=== PATIENT | male | born 1925 | race Caucasian/White ===

== ENCOUNTER 2017-07-23 05:37 | Emergency (ER) | payer MEDICARE, BC ==
--- OUTSIDE RECORDS SUMMARY | 2017-07-23 07:13 | XMS REPORT ---
:1925 External Reference #:[id number] Author Organization [facility] Address [address] [place] [address] Phone [phone] Care Team Providers Name Role Phone HCP/LW on file Primary Care Physician Unavailable Payers Type Date Identification Numbers Payment Provider Subscriber Medicare Primary Policy Number: [id number] [facility] Lloyd Cervantes PayID: [id number] [address] [place] [address] Medigap Part B Policy Number: [id number] [place] Lloyd Cervantes Group Number: [id number] [address] PayID: [id number] [place] [address] Problems Date Description Provider Status Onset: 09/03/2007 Coronary arteriosclerosis Elizabeth Page M.D. Active Onset: 11/05/2005 Gastroesophageal reflux disease Elizabeth Page M.D. Active Onset: 01/10/2006 Benign essential hypertension Elizabeth Page M.D. Active Onset: 01/10/2006 Palpitations Elizabeth Page M.D. Active Onset: 04/11/2006 Overweight Elizabeth Page M.D. 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 Cigarette Use Tobacco Of Any Kind Denies Use ETOH Use Occasionally consumes alcohol Recreational Drug Use Denies Drug Use Daily Caffeine Consumes on average 3 cups of coffee per day Exercise Type/Frequency 04/29/2015 Exercises doing 3/7 d stationary bike 20 min and wgt lifing all told for 1 hour advised to consider walking more to make 5 x/wk and 150 min per week min Sun Exposure minimum amount of sun exposure Sun Exposure Does not use sunscreen Seat Belt/Car Seat always uses seat belt Personal Habits cu wellness tiw wgt and exercise Currently Active 01/29/2008 Patient is currently not sexually active Age 1st [place] 19 Years Old STD's No STD History Sexual Hx Patient states heterosexual. Allergies, Adverse Reactions, Alerts Date Description Reaction Status Severity Comments 09/27/2003 NKDA active Medications Medication Date Status Form Strength Qnty SIG Indications Ordering Provider Elimargarito Active Tablets 5mg 60tabs 1 tablet I48.0 Rodney, 017 by mouth MD Simona every 12 hours Terazosin HCL Active Capsules 5mg 90caps take 1 I10 Sopchak, 014 capsule by Magnus, D.O. mouth every evening N40.1 Diltiazem 11/25/2013 Active Caps ER 24HR 180mg 90caps 1 every day Rodney for heart MD Simona blood pressure Ranitidine HCL 05/01/2013 Active Tablets 300mg 180tabs 1 tablet K2 Sopchak, twice a day 1. diamond Agudelo heart 9 D.O. burn on empty stomach - Simvastatin 01/15/2012 Active Tablets 20mg 90tabs 1 by mouth I2 Sopchak , every day 5. Magnus, 10 D.O. Centrum Silver 09/10/2008 Active Tablets Elizabeth Page M.D. Asa (Baby) 03/02/2004 Active 81mg 1 PO qd Elizabeth Page M.D. Medrol 04/05/2016 - Hx TBPK 4mg 1units use as M7 Hektor, 06/13/2016 directed on 9. JENNA Whiteside package 67 2 Azopt 05/15/2015 - Hx Suspension 1% prn Unknown 05/14/2016 Ultravate 05/27/2014 - Hx Cream 0.05% 50gm apply three 69 Elizabeth A. 06/29/2014 times a day 2. Ksenia to foot 89 M.D. only prn itch Durezol 05/26/2014 - Hx Emulsion 0.05% 1 drop q Unknown 06/11/2014 other day L eye Glucosamine 05/26/2014 - Hx Capsules 1500Com 2 a day Unknown 1500 Complex 10/14/2014 Prilosec 2012 - Hx Capsules DR 20mg otc 1 qd uses 53 Elizabeth A. 11/25/2013 them on 0. Ksenia, weekends 83 M.D. and rantidine on weekdays Omeprazole 09/29/2012 - Hx Capsules DR 20mg OTC 1 po every Unknown 2012 other day Amlodipine 05/15/2012 - Hx Tablets 5mg 90tabs take 1 40 Elizabeth A. Besylate 11/25/2013 tablet by 1Tonya Page mouth once 1 M.D. daily for high blood pressure Terazosin HCL 01/29/2012 - Hx Capsules 2mg 90caps 1 qd for 40 Elizabeth A. 11/26/2013 blood 1. Ksenia pressure 1 M.D. and prostate 600.01 Azopt 01/15/2012 - Hx Suspension 1% 365.10 [place], 06/11/2014 MD Noel Amlodipine 09/24/2011 - Hx Tablets 10mg 1/2 po qd 401.1 [place], Besylate 05/15/2012 MD Simona Amlodipine 08/09/2011 - Hx Tablets 10mg 1/4 tablet 401.1 Ksenia Besylate 09/24/2011 (2.5mg) qd Elizabeth Glez M.D. Terazosin HCL 05/15/2011 - Hx Capsules 1mg 90cap 2 qd at 401.1 Elizabeth ATonya 01/29/2012 s bedtime for lynn Page M.D. pressure 600.01 Tums 12/30/2009 - Hx Chewtabs 500mg V70.0 Elizabeth Glez 2012 Rojelio Page Vitamin D 12/29/2009 - Hx Capsules 1000Unit 1 po qd Unknown 07/01/2013 Norvasc 09/27/2009 - Hx Tablets 2.5mg 1 po qd for 785.1 Elizabeth Glez 05/31/2010 high blood Rojelio Page pressure 796.2 401.1 Atenolol 06/18/2009 - Hx Tablets 50mg take 02/14tablet by 785.1 Elizabeth Glez 09/27/2009 mouth once a day Rojelio Page 796.2 401.1 Atenolol 12/07/2008 - Hx Tablets 50mg 90tabs 1/2 qd for 785.1 Elizabeth Glez 06/18/2009 palpitations Rojelio Page 796.2 401.1 Atenolol 09/29/2008 - 12/07/2008 Hx Tablets 25mg 1 po qd 785.1 Elizabeth Page M.D. 796.2 401.1 Fish Oil 09/10/2008 - Hx Capsules 1000mg otc 1 a day Elizabeth Glez 10/14/2014 Rojelio Page dispense the prescription variety Glucosamine 09/10/2008 - Hx Capsules 500mg 715.0 Elizabeth Glez 05/14/2011 9 Rojelio Page Magnesium 01/29/2008 - Hx Tablets started self 414.0 Elizabeth Glez 09/10/2008 [address] 1 Rojelio Page 333.94 Simvastatin 09/29/2007 - Hx Tablets 40mg 90tabs 1/2 qpm For 414.01 Elizabeth Glez 01/15/2012 Cholesterol Rojelio Page Lisinopril 09/29/2007 - Hx Tablets 2.5mg 30tabs 1 PO Once 414.01 Unknown 03/12/2008 Daily Ketoconazole 09/15/2007 - Hx Cream 2% 30gm Apply To 110.3 Elizabeth Glez 09/25/2007 Affected Area Ksenia, bid For Ten M.D. Days Hydrocortisone 09/15/2007 - Hx Cream 2.5% 30gm apply and rub 110.3 Elizabeth ATonya 09/25/2007 in well once a Ksenia, day or more M.D. often if needed Atenolol 07/31/2007 - Hx Tablets 50mg 1qd PO qam 785.1 Elizabeth Glez 09/29/2008 Rojelio Page 796.2 401.1 Nitroglycerin 07/31/2007 - Hx Tablets Sub 0.4mg 100tabs 1 PO prn 786.09 Elizabeth Glez 08/09/2011 For Chest Ksenia, Pain, May M.D. Repeat After 5Min To A Max Of 3 Doses. Atenolol 07/15/2007 - Hx Tablets 25mg 1/4 in am 785.1 Elizabeth Glez 07/31/2007 [facility] for [facility].D. the next week then try 1/4 am and pm then call wy 796.2 401.1 Tobrex 06/18/2006 - Hx Solution 0.3% 5cc 2 Drops To Both 373.00 Terri Betts 06/23/2006 Eyes qid For 5 MD Days Atenolol 12/17/2005 - Hx Tablets 50mg 90tabs 1/2 bid for blood 785.1 Elizabeth Glez 07/15/2007 pressure and Ksenia, palpitations M.DTonya 796.2 401.1 Amoxicillin 11/26/2005 - Hx Capsules 500mg 30caps 1 tid For 461.0 Elizabeth Glez 12/06/2005 Ten Days Rojelio Page Ultravate 10/04/2005 - Hx Cream 0.05% 50gm Apply To 705.81 Elizabeth Glez 10/11/2005 Affected Ivette Page Three Jose ManuelDTonya Time A Day For 7 Days Viagra 03/02/2004 - Hx Tablets 50mg 20tabs 1 po qd prn 302.72 Elizabeth Glez 08/01/2007 as directed Rojelio Page Doxycycline 09/24/2003 - Hx Capsules 100mg 14caps 1 PO bid 082.0 ksenia Hyclate 05/08/2004 Ranitidine HCL 09/09/2003 - Hx Tablets 300mg 90tabs Take 1/2 To 530.81 Elizabeth Glez 2012 1 Tablet Ksenia Once A Day M.DTonya For Heart Burn Amlodipine - Hx Tablets 10mg 1 po qd 401.1 Unknown Besylate 05/15/2011 Amlodipine - Hx Tablets 5mg Unknown Besylate 05/15/2015 Medications Administered in Office Medication Date Status Form Strength Qnty SIG Indications Ordering Provider [id number] Swine Flu Administered Bubba Page M.D. Immunizations CPT Code Status Date Vaccine Lot # [id number] Given 12/19/2016 Influenza Virus Vaccine, Quadrivalent, Split, [id number] Preservative Free 31636 Given 06/14/2016 Td Immunization [id number] 31844 Given 12/12/2015 Influenza Vaccine Split Virus Preservative Free Im [id number] Use 40846 Given 11/16/2014 Influenza Vaccine Split Virus Preservative Free Im [id number] Use 85846 Given 05/27/2014 Prevnar 13 [id number] 89612 Given 12/29/2013 Influenza Vaccine Split Virus Preservative Free Im [id number] Use 92053 Given 2012 Flu, Split Virus 3Yrs [id number] 90236 Given 01/15/2012 Flu Vaccine Split Virus 3Yrs And Older [id number] 92145 Given 01/17/2011 Zostavax [id number] 37332 Given 10/27/2010 Flu, Split Virus 3Yrs [id number] 17901 Given 12/30/2009 Flu, Split Virus 3Yrs [id number] 85729 Given 11/05/2008 Flu, Split Virus 3Yrs [id number] 71134 Given 12/08/2007 Flu, Split Virus 3Yrs 97580 Given 11/16/2006 Flu, Split Virus 3Yrs [id number] 42957 Given 12/17/2005 Flu, Split Virus 3Yrs [id number] 71060 Given 11/05/2005 Td Immunization [id number] 51768 Given 12/12/2004 Flu, Split Virus 3Yrs 21969 Given 12/21/2003 Flu, Split Virus 3Yrs 99228 Given 12/17/2002 Influenza Immunization 82753 Given 11/21/1995 Pneumococcal Immunization Vital Signs Date Vital Result Comment 07/15/2017 BP Systolic 112 mmHg BP Diastolic 58 mmHg Weight 199.00 lb 06/18/2017 BP Systolic 124 mmHg BP Diastolic 60 mmHg Height 68.5 inches 5'8.50" Weight 197.00 lb BMI (Body Mass Index) 29.5 kg/m2 12/19/2016 BP Systolic 118 mmHg BP Diastolic 64 mmHg Weight 205.00 lb 06/14/2016 BP Systolic 120 mmHg BP Diastolic 60 mmHg Heart Rate 80 /min Respiratory Rate 17 /min Height 68.50 inches 5'8.50" Weight 201.00 lb BMI (Body Mass Index) 30.1 kg/m2 04/05/2016 BP Systolic 158 mmHg BP Diastolic 80 mmHg 12/12/2015 BP Systolic 118 mmHg BP Diastolic 60 mmHg BP Systolic Standing Resting Right Arm 123 mmHg K BP Diastolic Standing Resting Right Arm 70 mmHg K Heart Rate 70 /min Sitting Respiratory Rate 16 /min Height 68.50 inches 5'8.50" Weight 199.00 lb BMI (Body Mass Index) 29.8 kg/m2 05/16/2015 BP Systolic 110 mmHg BP Diastolic 60 mmHg Heart Rate 64 /min Respiratory Rate 16 /min Height 68.5 inches 5'8.50" Weight 198.00 lb BMI (Body Mass Index) 29.7 kg/m2 10/28/2014 BP Systolic 128 mmHg BP Diastolic 70 mmHg Heart Rate 56 /min Respiratory Rate 16 /min Weight 195.00 lb 06/30/2014 BP Systolic 130 mmHg BP Diastolic 70 mmHg Weight 199.00 lb 05/27/2014 BP Systolic 112 mmHg BP Diastolic 72 mmHg Height 68.5 inches 5'8.50" Weight 197.00 lb BMI (Body Mass Index) 29.5 kg/m2 11/26/2013 BP Systolic 108 mmHg BP Diastolic 58 mmHg Height 69 inches 5'9" Weight 199.00 lb BMI (Body Mass Index) 29.4 kg/m2 07/02/2013 BP Systolic 150 mmHg BP Diastolic 66 mmHg Height 69 inches 5'9" Weight 199.00 lb BMI (Body Mass Index) 29.4 kg/m2 2012 BP Systolic 140 mmHg BP Diastolic 68 mmHg BP Systolic Recheck 130 mmHg BP Diastolic Recheck 60 mmHg Heart Rate 65 /min rrr Height 69.25 inches 5'9.25" Weight 199.00 lb BMI (Body Mass Index) 29.2 kg/m2 08/21/2012 BP Systolic 130 mmHg BP Diastolic 70 mmHg Height 68.75 inches 5'8.75" Weight 200.00 lb BMI (Body Mass Index) 29.7 kg/m2 05/15/2012 BP Systolic 130 mmHg BP Diastolic 72 mmHg BP Systolic Recheck 128 mmHg BP Diastolic Recheck 62 mmHg Heart Rate 62 /min rrr Respiratory Rate 16 /min Height 68.50 inches 5'8.50" Weight 204.00 lb BMI (Body Mass Index) 30.6 kg/m2 01/15/2012 BP Systolic 130 mmHg BP Diastolic 64 mmHg Heart Rate 60 /min Respiratory Rate 16 /min Height 68.75 inches 5'8.75" Weight 201.00 lb BMI (Body Mass Index) 29.9 kg/m2 08/09/2011 BP Systolic 138 mmHg right arm BP Diastolic 78 mmHg right arm BP Systolic Recheck 143 mmHg R arm, pt's machine BP Diastolic Recheck 82 mmHg R arm, pt's machine Heart Rate 62 /min Respiratory Rate 16 /min Height 69 inches 5'9" Weight 192.00 lb BMI (Body Mass Index) 28.4 kg/m2 05/15/2011 BP Systolic 120 mmHg BP Diastolic 68 mmHg Heart Rate 70 /min Respiratory Rate 16 /min Weight 192.00 lb Last Menstrual Period 0 01/11/2011 BP Systolic 130 mmHg BP Diastolic 70 mmHg Height 69 inches 5'9" Weight 196.00 lb BMI (Body Mass Index) 28.9 kg/m2 10/05/2010 BP Systolic 124 mmHg BP Diastolic 70 mmHg Weight 199.00 lb 06/01/2010 BP Systolic 134 mmHg BP Diastolic 70 mmHg Height 69 inches 5'9" Weight 198.00 lb BMI (Body Mass Index) 29.2 kg/m2 12/30/2009 BP Systolic 120 mmHg BP Diastolic 62 mmHg Heart Rate 54 /min Respiratory Rate 16 /min Weight 203.00 lb 08/18/2009 BP Systolic 138 mmHg BP Diastolic 72 mmHg BP Systolic Recheck 133 mmHg BP Diastolic Recheck 65 mmHg Heart Rate 70 /min rrr Height 70 inches 5'10" Weight 204.00 lb w/shoes BMI (Body Mass Index) 29.3 kg/m2 05/26/2009 BP Systolic 124 mmHg BP Diastolic 76 mmHg Heart Rate 70 /min Respiratory Rate 16 /min Weight 205.00 lb Last Menstrual Period 0 02/02/2009 BP Systolic 140 mmHg BP Diastolic 72 mmHg Height 69 inches 5'9" Weight 207.00 lb BMI (Body Mass Index) 30.6 kg/m2 12/07/2008 BP Systolic 134 mmHg BP Diastolic 72 mmHg Weight 203.00 lb 12/07/2008 BP Systolic 134 mmHg BP Diastolic 72 mmHg Weight 203.00 lb 09/10/2008 BP Systolic 110 mmHg BP Diastolic 70 mmHg BP Systolic Standing Resting Right Arm 116 mmHg BP Diastolic Standing Resting Right Arm 70 mmHg Heart Rate 54 /min Respiratory Rate 16 /min Weight 198.00 lb Last Menstrual Period 0 06/17/2008 BP Systolic 134 mmHg BP Diastolic 80 mmHg Height 69.25 inches 5'9.25" Weight 196.00 lb w/out shoes BMI (Body Mass Index) 28.7 kg/m2 01/29/2008 BP Systolic 112 mmHg BP Diastolic 70 mmHg Heart Rate 70 /min rrr Respiratory Rate 16 /min Height 69.5 inches 5'9.50" Weight 194.00 lb BMI (Body Mass Index) 28.2 kg/m2 09/15/2007 BP Systolic 138 mmHg BP Diastolic 68 mmHg Height 69.5 inches 5'9.50" 07/15/2007 BP Systolic 134 mmHg BP Diastolic 90 mmHg BP Systolic Recheck 130 mmHg BP Diastolic Recheck 72 mmHg Heart Rate 54 /min Respiratory Rate 16 /min Height 69.5 inches 5'9.50" Weight 210.00 lb BMI (Body Mass Index) 30.6 kg/m2 Last Menstrual Period 0 04/17/2007 BP Systolic 146 mmHg BP Diastolic 84 mmHg BP Systolic Recheck 138 mmHg BP Diastolic Recheck 78 mmHg Heart Rate 55 /min rrr Respiratory Rate 16 /min Height 69.5 inches 5'9.50" Weight 198.00 lb BMI (Body Mass Index) 28.8 kg/m2 01/23/2007 BP Systolic 142 mmHg BP Diastolic 76 mmHg Height 69.5 inches 5'9.50" Weight 206.00 lb BMI (Body Mass Index) 30.0 kg/m2 10/24/2006 BP Systolic 116 mmHg BP Diastolic 72 mmHg Height 69.5 inches 5'9.50" Weight 202.00 lb BMI (Body Mass Index) 29.4 kg/m2 Last Menstrual Period 0 07/18/2006 BP Systolic 130 mmHg BP Diastolic 68 mmHg BP Systolic Standing Resting Right Arm 140 mmHg BP Diastolic Standing Resting Right Arm 70 mmHg Heart Rate 60 /min Respiratory Rate 16 /min Height 69.5 inches 5'9.50" Weight 204.00 lb BMI (Body Mass Index) 29.7 kg/m2 Last Menstrual Period 0 06/18/2006 BP Systolic 130 mmHg BP Diastolic 78 mmHg Body Temperature 98.0 F Height 69.5 inches 5'9.50" Weight 202.00 lb BMI (Body Mass Index) 29.4 kg/m2 Last Menstrual Period 0 04/11/2006 BP Systolic 134 mmHg BP Diastolic 76 mmHg BP Systolic Standing Resting Right Arm 136 mmHg BP Diastolic Standing Resting Right Arm 70 mmHg Heart Rate 60 /min Respiratory Rate 16 /min Height 69.5 inches 5'9.50" Weight 205.00 lb BMI (Body Mass Index) 29.8 kg/m2 01/10/2006 BP Systolic 140 mmHg home bp 139/72 and 109/67 BP Diastolic 80 mmHg home bp 139/72 and 109/67 BP Systolic Recheck 134 mmHg BP Diastolic Recheck 60 mmHg BP Systolic Standing Resting Right Arm 140 mmHg BP Diastolic Standing Resting Right Arm 70 mmHg Heart Rate 59 /min Respiratory Rate 16 /min Height 69.5 inches 5'9.50" Weight 200.00 lb BMI (Body Mass Index) 29.1 kg/m2 12/17/2005 BP Systolic 150 mmHg BP Diastolic 90 mmHg BP Systolic Recheck 140 mmHg BP Diastolic Recheck 80 mmHg Heart Rate 70 /min Respiratory Rate 16 /min Height 69.5 inches 5'9.50" Weight 198.00 lb BMI (Body Mass Index) 28.8 kg/m2 11/26/2005 BP Systolic 158 mmHg BP Diastolic 86 mmHg Body Temperature 97.6 F Height 69.5 inches 5'9.50" Weight 198.50 lb BMI (Body Mass Index) 28.9 kg/m2 11/05/2005 BP Systolic 160 mmHg BP Diastolic 90 mmHg Heart Rate 66 /min Reg Respiratory Rate 16 /min Height 69.5 inches 5'9.50" Weight 200.00 lb BMI (Body Mass Index) 29.1 kg/m2 10/04/2005 BP Systolic 160 mmHg BP Diastolic 84 mmHg Height 69.3 inches 5'9.30" Weight 204.00 lb BMI (Body Mass Index) 29.9 kg/m2 05/08/2004 BP Systolic 140 mmHg home bp 135/70s BP Diastolic 100 mmHg home bp 135/70s BP Systolic Recheck 160 mmHg BP Diastolic Recheck 98 mmHg Heart Rate 80 /min rrr Respiratory Rate 16 /min Height 69.3 inches 5'9.30" Weight 209.00 lb BMI (Body Mass Index) 30.6 kg/m2 03/02/2004 Body Temperature 97.5 F Height 69.3 inches 5'9.30" Weight 204.00 lb BMI (Body Mass Index) 29.9 kg/m2 09/27/2003 BP Systolic 136 mmHg BP Diastolic 62 mmHg Body Temperature 98.2 F Weight 205.00 lb 09/24/2003 Body Temperature 102.3 F 09/24/2003 BP Systolic 136 mmHg BP Diastolic 90 mmHg 09/24/2003 Body Temperature 102.3 F Results Test Date Test Result H/L Range Note Comp Metabolic Panel 11/08/2016 Sodium 140 mmol/L 133-145 Potassium 4.0 mmol/L 3.5-5.0 Chloride 106 mmol/L 101-111 Co2 Carbon Dioxide 26 mmol/L 22-32 Anion Gap 8 mmol/L 2-11 Glucose 100 mg/dL 70-100 Blood Urea Nitrogen 26 mg/dL High 6-24 Creatinine 1.34 mg/dL High 0.67-1.17 BUN/Creatinine Ratio 19.4 8-20 Calcium 9.2 mg/dL 8.6-10.3 Total Protein 6.8 g/dL 6.4-8.9 Albumin 4.2 g/dL 3.2-5.2 Globulin 2.6 g/dL 2-4 Albumin/Globulin Ratio 1.6 1-3 Total Bilirubin 1.10 mg/dL High 0.2-1.0 Alkaline Phosphatase 60 U/L 34-104 Alt 20 U/L 7-52 Ast 23 U/L 13-39 Egfr Non- 50.3 >60 Egfr 64.7 >60 1 Lipid Profile (Trig/Chol/HDL) 11/08/2016 Triglycerides 84 mg/dL 2 Cholesterol 97 mg/dL 3 HDL Cholesterol 41.3 mg/dL 4 LDL Cholesterol 39 mg/dL 5 Laboratory test finding 11/08/2016 Creatine Kinase(CK) 102 U/L 10-223 Urine Micro Inhouse 12/12/2015 Ua WBC 1-3 6 Ua RBC - 6 Ua Casts - 6 Ua Epi packed 6 Ua Other - 6 Ua Glucose - 6 Ua Bilirubin - 6 Ua Ketones - 6 Ua Specific Aiken 1.025 6 Ua Blood - 6 Ua PH 5.0 6 Ua Protein - 6 Ua Urobilinogen - 6 Ua Nitrite - 6 Ua Leukocytes - 6 Basic Metabolic Panel 12/02/2015 Sodium 140 mmol/L 133-145 Potassium 4.6 mmol/L 3.5-5.0 Chloride 107 mmol/L 101-111 Co2 Carbon Dioxide 25 mmol/L 22-32 Anion Gap 8 mmol/L 2-11 Glucose 101 mg/dL High 70-100 Blood Urea Nitrogen 24 mg/dL 6-24 Creatinine 1.40 mg/dL High 0.67-1.17 BUN/Creatinine Ratio 17.1 8-20 Calcium 9.5 mg/dL 8.6-10.3 Egfr Non- 47.8 >60 Egfr 61.5 >60 7 Laboratory test finding 12/02/2015 Ast (Sgot) 24 U/L 13-39 Lipid Profile (Trig/Chol/HDL) 12/02/2015 Triglycerides 59 mg/dL 8 Cholesterol 93 mg/dL 9 HDL Cholesterol 43.2 mg/dL 10 LDL Cholesterol 38 mg/dL 11 Urine Micro Inhouse 05/16/2015 Ua WBC 0-2 12 Ua RBC - 12 Ua Casts 2-3 12 Ua Epi 2-3 12 Ua Other - 12 Ua Glucose - 12 Ua Bilirubin mod 12 Ua Ketones - 12 Ua Specific Aiken 1.025 12 Ua Blood - 12 Ua PH 6.0 12 Ua Protein 1+ 12 Ua Urobilinogen - 12 Ua Nitrite - 12 Ua Leukocytes - 12 Urine Micro Inhouse 10/28/2014 Ua WBC - Ua RBC 2-3 Ua Casts - Ua Epi - Ua Other - Ua Glucose - Ua Bilirubin - Ua Ketones - Ua Specific [place]iken 1.025 Ua Blood - Ua PH 5.0 Ua Protein trace Ua Urobilinogen - Ua Nitrite - Ua Leukocytes - Comp Metabolic Panel 10/28/2014 Sodium 138 mmol/L 133-145 Potassium 4.0 mmol/L 3.5-5.0 Chloride 107 mmol/L 101-111 Co2 Carbon Dioxide 23 mmol/L 22-32 Anion Gap 8 mmol/L 2-11 Glucose 89 mg/dL 70-100 Blood Urea Nitrogen 22 mg/dL 6-24 Creatinine 1.21 mg/dL High 0.67-1.17 BUN/Creatinine Ratio 18.2 8-20 Calcium 9.2 mg/dL 8.6-10.3 Total Protein 6.9 g/dL 6.4-8.9 Albumin 4.4 g/dL 3.2-5.2 Globulin 2.5 g/dL 2-4 Albumin/Globulin Ratio 1.8 1-3 Total Bilirubin 0.80 mg/dL 0.2-1.0 Alkaline Phosphatase 54 U/L 34-104 Alt 18 U/L 7-52 Ast 21 U/L 13-39 Egfr Non- 56.9 >60 Egfr 73.1 >60 13 Lipid Profile (Trig/Chol/HDL) 10/28/2014 Triglycerides 59 mg/dL 14 Cholesterol 98 mg/dL 15 HDL Cholesterol 47.9 mg/dL 16 LDL Cholesterol 38 mg/dL 17 Urine Micro Inhouse 11/26/2013 Ua WBC - Ua RBC - Ua Casts - Ua Epi - Ua Other - Ua Glucose - Ua Bilirubin sm Ua Ketones - Ua Specific [place]iken 1.020 Ua Blood - Ua PH 5.0 Ua Protein tr Ua Urobilinogen - Ua Nitrite - Ua Leukocytes - Lipid Profile (Trig/Chol/HDL) 07/02/2013 Triglycerides 73 mg/dL 18 Cholesterol 108 mg/dL 19 HDL Cholesterol 45.2 mg/dL 20 LDL Cholesterol 48 mg/dL 21 Laboratory test finding 07/02/2013 TSH (Thyroid Stimulating 0.96 IU/mL 0.34-5.60 22 Horm) Basic Metabolic Panel 07/02/2013 Sodium 140 mmol/L 133-145 Potassium 4.3 mmol/L 3.7-5.6 Chloride 108 mmol/L 101-111 Co2 Carbon Dioxide 24 mmol/L 22-32 Anion Gap 8 mmol/L 2-11 Glucose 100 mg/dL 70-100 Blood Urea Nitrogen 20 mg/dL 6-24 Creatinine 1.23 mg/dL High 0.67-1.17 BUN/Creatinine Ratio 16.3 8-20 Calcium 9.5 mg/dL 8.6-10.3 Egfr Non- 55.9 >60 Egfr 71.9 >60 23 Urine Micro Inhouse 07/02/2013 Ua WBC 2-5 Ua RBC - Ua Casts - Ua Epi many Ua Other sediment Ua Glucose - Ua Bilirubin - Ua Ketones - Ua Specific Aiken 1.025 Ua Blood - Ua PH 5.0 Ua Protein tr Ua Urobilinogen - Ua Nitrite - Ua Leukocytes - Urine Micro Inhouse 08/21/2012 Ua WBC - Ua RBC - Ua Casts - Ua Epi - Ua Other - Ua Glucose - Ua Bilirubin - Ua Ketones - Ua Specific Aiken 1.025 Ua Blood - Ua PH 5.0 Ua Protein - Ua Urobilinogen - Ua Nitrite - Ua Leukocytes - Basic Metabolic Panel 05/20/2012 Sodium 142 mmol/L 133-145 Potassium 4.1 mmol/L 3.5-5.0 Chloride 110 mmol/L 101-111 Co2 Carbon Dioxide 25.0 mmol/L 22-32 Anion Gap 7.0 mmol/L 2-11 Glucose 95 mg/dL 70-100 Blood Urea Nitrogen 16 mg/dL 6-24 Creatinine 1.40 mg/dL 0.50-1.40 BUN/Creatinine Ratio 11.4 8-20 Calcium 9.4 mg/dL 8.1-9.9 Egfr Non- 48.3 >60 Egfr 62.1 >60 24 Laboratory test 05/20/2012 TSH (Thyroid Stimulating 1.05 miu/mL 0.34- 5.60 25 finding Horm) Lipid Profile 05/20/2012 Triglycerides 62 mg/dL 40-200 (Trig/Chol/HDL) Cholesterol 113 mg/dL Less than 200 HDL Cholesterol 44 mg/dL 40-60 26 Cholesterol/HDL Ratio 2.6 Average 1-4.44 LDL Cholesterol 56.6 mg/dL Less Than 100 27 Urine Micro Inhouse 05/15/2012 Ua WBC - Ua RBC - Ua Casts - Ua Epi - Ua Other - Ua Glucose - Ua Bilirubin - Ua Ketones - Ua Specific Aiken 1.015 Ua Blood - Ua PH 5.0 Ua Protein - Ua Urobilinogen - Ua Nitrite - Ua Leukocytes - Urine Micro Inhouse 01/15/2012 Ua WBC - Ua RBC - Ua Casts - Ua Epi - Ua Other - Ua Glucose - Ua Bilirubin - Ua Ketones - Ua Specific Aiken 1.030 Ua Blood - Ua PH 5.0 Ua Protein tr Ua Urobilinogen - Ua Nitrite - Ua Leukocytes - Lipid Profile (Trig/Chol/HDL) 10/30/2011 Triglyceride 53 mg/dL 40-200 Cholesterol 112 mg/dL Less Than 200 28 High Density Lipoprotein 48 mg/dL 40-60 29 Cholesterol/HDL Ratio 2.33 AVERAGE 1-4.97 Low Density Lipoprotein 53 mg/dL Less Than 100 30 Basic Metabolic Panel 10/30/2011 Sodium 140 mmol/L 135-145 Potassium 3.8 mmol/L 3.5-5.0 Chloride 110 mmol/L 101-111 Co2 (Carbon Dioxide) 24.0 mmol/L 22-32 Anion Gap 6.0 mmol/L 2-11 31 Glucose 95 mg/dL 70-100 BUN 17 mg/dL 6-24 Creatinine 1.3 mg/dL 0.50-1.40 One Over Creatinine 0.76 BUN/Creatinine Ratio 13.1 8-20 Calcium 9.3 mg/dL 8.1-9.9 eGFR Non- 52.7 > 60 eGFR 67.8 > 60 32 Urine Micro Inhouse 08/09/2011 Ua WBC - Ua RBC - Ua Casts - Ua Epi - Ua Other - Ua Glucose - Ua Bilirubin - Ua Ketones - Ua Specific [place]iken 1.015 Ua Blood - Ua PH 6.5 Ua Protein tr Ua Urobilinogen - Ua Nitrite - Ua Leukocytes - Urine Micro Inhouse 05/15/2011 Ua WBC - Ua RBC - Ua Casts - Ua Epi many Ua Other - Ua Glucose - Ua Bilirubin - Ua Ketones - Ua Specific Aiken 1.025 Ua Blood - Ua PH 5.0 Ua Protein 1+ Ua Urobilinogen - Ua Nitrite - Ua Leukocytes - Surgical Pathology 03/08/2011 Surgical Pathology <SEE 33 NOTE> Lipid Profile 01/11/2011 Triglyceride 89 mg/dL 40-200 (Trig/Chol/HDL) Cholesterol 129 mg/dL Less Than 200 34 High Density Lipoprotein 52 mg/dL 40-60 35 Cholesterol/HDL Ratio 2.48 AVERAGE 1-4.97 Low Density Lipoprotein 59 mg/dL Less Than 100 36 CBC Auto Diff 01/11/2011 White Blood Count 7.5 CUMM 4.8-10.8 Red Cell Count 4.36 CUMM Low 4.6-6.2 Hemoglobin 14.8 g/dL 14.0-18.0 Hematocrit 42 % 42-52 Mean Corpuscular Volume 97 um3 High 80-94 Mean Corpuscular Hemoglob 34 pg High 27-31 Mean Corpuscular HGB Cone 35 g/dL 32-36 Redcell Distribution WDTH 13 % 10.5-15 Platelet Count 147 CUMM Low 150-450 Mean Platelet Volume 8.4 um3 7.4-10.4 Gran % 58.5 % 38-83 Lymph % 31.7 % 25-47 Mononuclear % 7.9 % 1-9 Eosinophil % 1.4 % 0-6 Basophil % 0.5 % 0-2 Abs Lymphs 2.4 1.0-4.8 Abs Mononuclear 0.6 0-0.8 Absolute Neutrophil Count 4.4 1.5-7.7 Abs Eosinophils 0.1 0-0.6 Abs Basophils 0 0-0.2 Basic Metabolic Panel 01/11/2011 Sodium 139 mmol/L 135-145 Potassium 3.9 mmol/L 3.5-5.0 Chloride 105 mmol/L 101-111 Co2 (Carbon Dioxide) 25.0 mmol/L 22-32 Anion Gap 9.0 mmol/L 2-11 37 Glucose 97 mg/dL 70-100 BUN 20 mg/dL 6-24 Creatinine 1.2 mg/dL 0.50-1.40 One Over Creatinine 0.83 BUN/Creatinine Ratio 16.7 8-20 Calcium 9.6 mg/dL 8.1-9.9 eGFR Non- 57.8 > 60 eGFR 74.4 > 60 38 Urine Micro Inhouse 01/11/2011 Ua WBC - Ua RBC - Ua Casts - Ua Epi - Ua Other - Ua Glucose - Ua Bilirubin - Ua Ketones - Ua Specific Aiken 1.025 Ua Blood - Ua PH 6.0 Ua Protein 1+ Ua Urobilinogen - Ua Nitrite - Ua Leukocytes - Urine Micro Inhouse 10/05/2010 Ua WBC 0-1 Ua RBC - Ua Casts - Ua Epi packed Ua Other crystals Ua Glucose - Ua Bilirubin mod Ua Ketones - Ua Specific Aiken 1.025 Ua Blood - Ua PH 5.0 Ua Protein tr Ua Urobilinogen - Ua Nitrite - Ua Leukocytes - Basic Metabolic Panel 10/02/2010 Sodium 142 mmol/L 135-145 Potassium 3.6 mmol/L 3.5-5.0 Chloride 108 mmol/L 101-111 Co2 (Carbon Dioxide) 28.0 mmol/L 22-32 Anion Gap 6.0 mmol/L 2-11 39 Glucose 97 mg/dL 70-100 BUN 21 mg/dL 6-24 Creatinine 1.3 mg/dL 0.50-1.40 One Over Creatinine 0.76 BUN/Creatinine Ratio 16.2 8-20 Calcium 9.3 mg/dL 8.1-9.9 eGFR Non- 52.8 > 60 eGFR 68.0 > 60 40 Lipid Profile (Trig/Chol/HDL) 10/02/2010 Triglyceride 71 mg/dL 40-200 Cholesterol 124 mg/dL Less Than 200 41 High Density Lipoprotein 45 mg/dL 40-60 42 Cholesterol/HDL Ratio 2.76 AVERAGE 1-4.97 Low Density Lipoprotein 65 mg/dL Less Than 100 43 Urine Micro Inhouse 06/01/2010 Ua WBC 0-2 Ua RBC - Ua Casts - Ua Epi - Ua Other - Ua Glucose - Ua Bilirubin - Ua Ketones - Ua Specific Aiken 1.015 Ua Blood - Ua PH 5.0 Ua Protein - Ua Urobilinogen - Ua Nitrite - Ua Leukocytes - Basic Metabolic Panel 05/26/2010 Sodium 140 mmol/L 135-145 Potassium 4.0 mmol/L 3.5-5.0 Chloride 106 mmol/L 101-111 Co2 (Carbon Dioxide) 25.0 mmol/L 22-32 Anion Gap 9.0 mmol/L 2-11 44 Glucose 100 mg/dL 70-100 BUN 17 mg/dL 6-24 Creatinine 1.20 mg/dL 0.50-1.40 One Over Creatinine 0.80 BUN/Creatinine Ratio 14.2 8-20 Calcium 9.4 mg/dL 8.1-9.9 eGFR Non- 58.0 > 60 eGFR 74.5 > 60 45 Urine Micro Inhouse 08/18/2009 Ua WBC - Ua RBC - Ua Casts - Ua Epi - Ua Other - Ua Glucose - Ua Bilirubin - Ua Ketones - Ua Specific [place]iken 1.030 Ua Blood - Ua PH 5.0 Ua Protein - Ua Urobilinogen - Ua Nitrite - Ua Leukocytes - Basic Metabolic Panel 08/11/2009 Sodium 142 mmol/L 135-145 Potassium 3.7 mmol/L 3.5-5.0 Chloride 110 mmol/L 101-111 Co2 (Carbon Dioxide) 25.0 mmol/L 22-32 Anion Gap 7.0 mmol/L 2-11 46 Glucose 101 mg/dL High 70-100 47 BUN 14 mg/dL 6-24 Creatinine 1.40 mg/dL 0.50-1.40 One Over Creatinine 0.70 BUN/Creatinine Ratio 10.0 8-20 Calcium 9.2 mg/dL 8.1-9.9 48 eGFR Non- 51.7 > 60 eGFR 62.6 > 60 49 Laboratory test finding 08/11/2009 Ast (Sgot) 27 U/L 12-42 Lipid Profile (Trig/Chol/HDL) 08/11/2009 Triglyceride 58 mg/dL 40-200 Cholesterol 117 mg/dL Less Than 200 50 High Density Lipoprotein 45 mg/dL 40-60 51 Cholesterol/HDL Ratio 2.60 AVERAGE 1-4.97 Low Density Lipoprotein 60 mg/dL Less Than 100 52 Laboratory test finding 08/11/2009 Folate RBC (RBC Folic 374 ng/mL 268- 616 53 Acid) Iron & Iron Binding 08/11/2009 Iron Total 88 g/dL 45-182 Capacity Unsaturated Iron Binding 247 g/dL Total Iron Binding Capacity 335 g/dL 250-450 % Iron Saturation 26 % 15-55 Xray 05/26/2009 X-Ray, Hand, Min. 3 Views, RT wnl minl djd Ua Inhouse 02/02/2009 Ua Glucose - Ua Bilirubin - Ua Ketones - Ua Specific Aiken 1.025 Ua Blood - Ua PH 5.0 Ua Protein - Ua Urobilinogen - Ua Nitrite - Ua Leukocytes - Urine Micro Inhouse 02/02/2009 Urine Microscopic Inhouse occ wbc Xray 12/16/2008 X-Ray, Lumbosacral Spine, Ap & Lat mild djd Minimum 4 Views X-Ray, Pelvis, 1 Or 2 Views nl Urine Micro Inhouse 12/07/2008 Urine Microscopic Inhouse see result note 54 Ua Inhouse 12/07/2008 Ua Glucose - 54 Ua Bilirubin - 54 Ua Ketones - 54 Ua Specific Aiken 1.015 54 Ua Blood - 54 Ua PH 6.0 54 Ua Protein - 54 Ua Urobilinogen - 54 Ua Nitrite - 54 Ua Leukocytes - 54 Basic Metabolic Panel 09/14/2008 Sodium 140 mmol/L 135-145 Potassium 3.9 mmol/L 3.5-5.0 Chloride 109 mmol/L 101-111 Co2 (Carbon Dioxide) 25.0 mmol/L 22-32 Anion Gap 6.0 mmol/L 2-11 55 Glucose 100 mg/dL 70-100 56 BUN 15 mg/dL 6-24 Creatinine 1.30 mg/dL 0.50-1.40 One Over Creatinine 0.70 BUN/Creatinine Ratio 11.5 8-20 Calcium 9.4 mg/dL 8.1-9.9 57 eGFR Non- 56.5 > 60 eGFR 68.3 > 60 58 Laboratory test finding 09/14/2008 Ast (Sgot) 23 U/L 12-42 Lipid Profile (Trig/Chol/HDL) 09/14/2008 Triglyceride 54 mg/dL 40-200 Cholesterol 104 mg/dL Less Than 200 59 High Density Lipoprotein 41 mg/dL 40-60 60 Cholesterol/HDL Ratio 2.54 AVERAGE 1-4.97 Low Density Lipoprotein 52 mg/dL Less Than 100 61 Urine Micro Inhouse 09/10/2008 Urine Microscopic Inhouse - Ua Inhouse 09/10/2008 Ua Glucose - Ua Bilirubin - Ua Ketones - Ua Specific [place]iken 1.015 Ua Blood - Ua PH 5.0 Ua Protein - Ua Urobilinogen - Ua Nitrite - Ua Leukocytes - Basic Metabolic Panel 06/18/2008 Sodium 139 mmol/L 135-145 Potassium 4.3 mmol/L 3.5-5.0 Chloride 105 mmol/L 101-111 Co2 (Carbon Dioxide) 26.0 mmol/L 22-32 Anion Gap 8.0 mmol/L 2-11 62 Glucose 96 mg/dL 70-100 63 BUN 18 mg/dL 6-24 Creatinine 1.20 mg/dL 0.50-1.40 One Over Creatinine 0.80 BUN/Creatinine Ratio 15.0 8-20 Calcium 9.3 mg/dL 8.1-9.9 64 CBC With Electronic Diff 06/18/2008 White Blood Count 7.3 CUMM 4.8-10.8 Red Cell Count 4.51 CUMM Low 4.6-6.2 Hemoglobin 14.7 g/dL 14.0-18.0 Hematocrit 43 % 42-52 Mean Corpuscular Volume 96 um3 High 80-94 Mean Corpuscular Hemoglob 33 pg High 27-31 Mean Corpuscular HGB Cone 34 g/dL 32-36 Redcell Distribution WDTH 13 % 10.5-15 Platelet Count 139 CUMM Low 150-450 Mean Platelet Volume 8.1 um3 7.4-10.4 Gran % 44.9 % 38-83 Lymph % 41.3 % 25-47 Mononuclear % 12.1 % High 1-9 Eosinophil % 1.2 % 0-6 Basophil % 0.5 % 0-2 Abs Lymphs 3.0 1.0-4.8 Abs Mononuclear 0.9 High 0-0.8 Absolute Neutrophil Count 3.3 1.5-7.7 Abs Eosinophils 0.1 0-0.6 Abs Basophils 0 0-0.2 Lipid Profile (Trig/Chol/HDL) 06/18/2008 Triglyceride 67 mg/dL 40-200 Cholesterol 106 mg/dL Less Than 200 65 High Density Lipoprotein 41 mg/dL 40-60 66 Cholesterol/HDL Ratio 2.59 AVERAGE 1-4.97 Low Density Lipoprotein 52 mg/dL Less Than 100 67 Iron & Iron Binding Capacity 06/18/2008 Iron Total 103 g/dL 45-182 Unsaturated Iron Binding 247 g/dL Total Iron Binding Capacity 350 g/dL 250-450 % Iron Saturation 29 % 15-55 Laboratory test finding 06/18/2008 Ferritin 42 NG/ML 24-336 Xray 06/17/2008 X-Ray, Chest, 2 Views wnl Laboratory test finding 02/18/2008 Vitamin B12 511 pg/mL 180-914 Iron & Iron Binding 02/18/2008 Iron Total 39 g/dL Low 45-182 Capacity Unsaturated Iron Binding 273 g/dL Total Iron Binding Capacity 312 g/dL 250-450 % Iron Saturation 13 % Low 15-55 Hemoglobin/Hematacrit 02/18/2008 Hemoglobin 13.1 g/dL Low 14.0-18.0 Hematocrit 39 % Low 42-52 Basic Metabolic Panel 01/30/2008 Sodium 141 mmol/L 135-145 Potassium 4.3 mmol/L 3.5-5.0 Chloride 110 mmol/L 101-111 Co2 (Carbon Dioxide) 26.0 mmol/L 22-32 Anion Gap 5.0 mmol/L 2-11 68 Glucose 94 mg/dL 70-100 69 BUN 20 mg/dL 6-24 Creatinine 1.30 mg/dL 0.50-1.40 One Over Creatinine 0.70 BUN/Creatinine Ratio 15.4 8-20 Calcium 9.3 mg/dL 8.1-9.9 70 Lipid Profile (Trig/Chol/HDL) 01/30/2008 Triglyceride 51 mg/dL 40-200 Cholesterol 85 mg/dL Low Less Than 200 71 High Density Lipoprotein 42 mg/dL 40-60 72 Cholesterol/HDL Ratio 2.02 AVERAGE 1-4.97 Low Density Lipoprotein 33 mg/dL Less Than 100 73 CBC With Electronic Diff 01/30/2008 White Blood Count 6.5 CUMM 4.8-10.8 Red Cell Count 4.05 CUMM Low 4.6-6.2 Hemoglobin 12.6 g/dL Low 14.0-18.0 Hematocrit 37 % Low 42-52 Mean Corpuscular Volume 92 um3 80-94 Mean Corpuscular Hemoglob 31 pg 27-31 Mean Corpuscular HGB Cone 34 g/dL 32-36 Redcell Distribution WDTH 15 % 10.5-15 Platelet Count 122 CUMM Low 150-450 Mean Platelet Volume 8.5 um3 7.4-10.4 Gran % 47.3 % 38-83 Lymph % 38.4 % 25-47 Mononuclear % 11.5 % High 1-9 Eosinophil % 2.3 % 0-6 Basophil % 0.5 % 0-2 Abs Lymphs 2.5 1.0-4.8 Abs Mononuclear 0.7 0-0.8 Absolute Neutrophil Count 3.1 1.5-7.7 Abs Eosinophils 0.1 0-0.6 Abs Basophils 0 0-0.2 Laboratory test finding 01/30/2008 TSH 1.03 MIU/ML 0.34-5.60 Magnesium 2.2 mg/dL 1.7-2.6 Urine Micro Inhouse 01/29/2008 Urine Microscopic Inhouse - Ua Inhouse 01/29/2008 Ua Glucose - Ua Bilirubin - Ua Ketones - Ua Specific Aiken 1.010 Ua Blood - Ua PH 6.0 Ua Protein tr Ua Urobilinogen - Ua Nitrite - Ua Leukocytes - Basic Metabolic Panel 01/07/2008 Sodium 143 mmol/L 135-145 Potassium 4.9 mmol/L 3.5-5.0 Chloride 111 mmol/L 101-111 Co2 (Carbon Dioxide) 26.0 mmol/L 22-32 Anion Gap 6.0 mmol/L 2-11 74 Glucose 89 mg/dL 70-100 75 BUN 19 mg/dL 6-24 Creatinine 1.16 mg/dL 0.50-1.40 One Over Creatinine 0.80 BUN/Creatinine Ratio 16.4 8-20 Calcium 9.6 mg/dL 8.1-9.9 76 Laboratory test 01/07/2008 C Reactive Protein < 0.5 mg/dL Less Than 0.5 finding Erythrocyte Sed Rate 7 MM/HR 0-40 CBC With Electronic Diff 08/07/2007 White Blood Count 6.1 CUMM 4.8-10.8 Red Cell Count 4.39 CUMM Low 4.6-6.2 Hemoglobin 14.4 g/dL 14.0-18.0 Hematocrit 41 % Low 42-52 Mean Corpuscular Volume 94 um3 80-94 Mean Corpuscular Hemoglob 33 pg High 27-31 Mean Corpuscular HGB Cone 35 g/dL 32-36 Redcell Distribution WDTH 12 % 10.5-15 Platelet Count 144 CUMM Low 150-450 Mean Platelet Volume 8.4 um3 7.4-10.4 Gran % 55.0 % 38-83 Lymph % 32.1 % 20-45 Mononuclear % 11.1 % High 1-9 Eosinophil % 1.2 % 0-6 Basophil % 0.6 % 0-2 Abs Lymphs 2.0 1.0-4.8 Abs Mononuclear 0.7 0-0.8 Absolute Neutrophil Count 3.4 1.5-7.7 Abs Eosinophils 0.1 0-0.6 Abs Basophils 0 0-0.2 Protime W/Inr 08/07/2007 Protime 12.5 10.9-13.3 Inr 1.07 77 Laboratory test finding 08/07/2007 PTT (Aptt) 25.3 20.1-28.2 78 Basic Metabolic Panel 08/07/2007 Sodium 137 mmol/L 135-145 Potassium 3.9 mmol/L 3.5-5.0 Chloride 109 mmol/L 101-111 Co2 (Carbon Dioxide) 22.0 mmol/L 22-32 Anion Gap 6.0 mmol/L 2-11 79 Glucose 106 mg/dL High 70-105 BUN 20 mg/dL 6-24 Creatinine 1.2 mg/dL 0.5-1.4 One Over Creatinine 0.83 BUN/Creatinine Ratio 16.7 8-20 Calcium 8.8 mg/dL 8.1-9.9 80 Xray 07/15/2007 X-Ray, Chest, 2 Views wnl Ua Inhouse 01/24/2007 Ua Glucose - Ua Bilirubin - Ua Ketones - Ua Specific Aiken 1.010 Ua Blood - Ua PH 5.0 Ua Protein - Ua Urobilinogen - Ua Nitrite - Ua Leukocytes - Urine Micro Inhouse 01/24/2007 Urine Microscopic 0-2wbc, rare rbc Inhouse CBC With Electronic 01/20/2007 White Blood Count 7.0 CUMM 4.8-10.8 Diff Abs Basophils 0 0-0.2 Abs Eosinophils 0.1 0-0.6 Absolute Neutrophil Count 3.4 1.5-7.7 Abs Lymphs 2.8 1.0-4.8 Abs Mononuclear 0.7 0-0.8 Basophil % 0.3 % 0-2 Hematocrit 43 % 42-52 Hemoglobin 14.9 g/dL 14.0-18.0 Eosinophil % 1.2 % 0-6 Gran % 48.8 % 38-83 Lymph % 39.4 % 20-45 Mean Corpuscular HGB Cone 35 g/dL 32-36 Mean Corpuscular Hemoglob 33 pg High 27-31 Mean Corpuscular Volume 96 um3 High 80-94 Mean Platelet Volume 8.6 um3 7.4-10.4 Mononuclear % 10.3 % High 1-9 Platelet Count 161 CUMM 150-450 Red Cell Count 4.48 CUMM Low 4.6-6.2 Redcell Distribution WDTH 12 % 10.5-15 Lipid Profile 01/20/2007 Cholesterol/HDL Ratio 4.46 AVERAGE 1-4.97 (Trig/Chol/HDL) Cholesterol 165 mg/dL Less Than 200 81 Triglyceride 116 mg/dL 40-200 High Density Lipoprotein 37 mg/dL Low 40-60 82 Low Density Lipoprotein 105 mg/dL High Less Than 100 83 Basic Metabolic Panel 01/20/2007 One Over Creatinine 0.66 Anion Gap 6.0 mmol/L 2-11 84 BUN 19 mg/dL 6-24 Calcium 9.5 mg/dL 8.7-10.2 Chloride 107 mmol/L 101-111 Co2 (Carbon Dioxide) 26.0 mmol/L 22-32 Glucose 92 mg/dL 70-105 Potassium 4.7 mmol/L 3.5-5.0 Sodium 139 mmol/L 135-145 BUN/Creatinine Ratio 12.7 8-20 Creatinine 1.5 mg/dL High 0.5-1.4 Laboratory test finding 01/20/2007 PSA Screening 1.04 NG/ML 0-4 85 Ua Inhouse 10/24/2006 Ua Glucose - Ua Bilirubin - Ua Ketones - Ua Specific [place]iken 1.020 Ua Blood - Ua PH 5.0 Ua Protein - Ua Urobilinogen - Ua Nitrite - Ua Leukocytes - Urine Micro Inhouse 10/24/2006 Urine Microscopic Inhouse - Basic Metabolic Panel 07/18/2006 One Over Creatinine 0.71 Anion Gap 6.0 mmol/L 2-11 86 BUN 17 mg/dL 6-24 Calcium 9.5 mg/dL 8.7-10.2 Chloride 108 mmol/L 101-111 Co2 (Carbon Dioxide) 26.0 mmol/L 22-32 Glucose 114 mg/dL High 70-105 Potassium 4.7 mmol/L 3.5-5.0 Sodium 140 mmol/L 135-145 BUN/Creatinine Ratio 12.1 8-20 Creatinine 1.4 mg/dL 0.5-1.4 Surgical Pathology 01/17/2006 Surgical Pathology <SEE 87 NOTE> Ua Inhouse 11/05/2005 Ua Glucose - Ua Bilirubin - Ua Ketones - Ua Specific Aiken 1.025 Ua Blood - Ua PH 5.0 Ua Protein tr Ua Urobilinogen - Ua Nitrite - Ua Leukocytes - Laboratory test 11/05/2005 Urine Microscopic - finding Inhouse Lipid Profile 11/05/2005 Cholesterol 153 mg/dL Less Than 200 88, 89 (Trig/Chol/HDL) Triglyceride 60 mg/dL 40-200 88 High Density Lipoprotein 43 mg/dL 40-60 88 Low Density Lipoprotein 98 mg/dL Less Than 100 88, 90 Cholesterol/HDL Ratio 3.56 AVERAGE 1-4.97 88 Laboratory test finding 11/05/2005 PSA Screening 1.39 NG/ML 0.01-4.0 88 , 91 CBC With Electronic Diff 11/05/2005 White Blood Count 6.2 CUMM 4.8-10.8 88 Abs Basophils 0 0-0.2 88 Abs Eosinophils 0.1 0-0.6 88 Absolute Neutrophil Count 3.4 1.5-7.7 88 Abs Lymphs 2.0 1.0-4.8 88 Abs Mononuclear 0.7 0-0.8 88 Basophil % 0.6 % 0-2 88 Hematocrit 43 % 42-52 88 Hemoglobin 14.7 g/dL 14.0-18.0 88 Eosinophil % 1.3 % 0-6 88 Gran % 54.7 % 38-83 88 Lymph % 31.5 % 20-45 88 Mean Corpuscular HGB Cone 34 g/dL 32-36 88 Mean Corpuscular Hemoglob 33 pg High 27-31 88 Mean Corpuscular Volume 97 um3 High 80-94 88 Mean Platelet Volume 8.5 um3 7.4-10.4 88 Mononuclear % 11.9 % High 1-9 88 Platelet Count 150 CUMM 150-450 88 Red Cell Count 4.46 CUMM Low 4.6-6.2 88 Redcell Distribution WDTH 13 % 10.5-15 88 Comp Metabolic Panel 11/05/2005 One Over Creatinine 0.76 88 Anion Gap 9.0 mmol/L 2-11 88, 92 Albumin/Globulin Ratio 1.6 1-3 88 Albumin 4.3 GM/DL 3.2-5.2 88 Alkaline Phosphatase 65 U/L 39-117 88 Alt (SGPT) 29 U/L 17-63 88 Ast (Sgot) 30 U/L 12-42 88 BUN 20 mg/dL 6-24 88 Calcium 9.4 mg/dL 8.7-10.2 88 Chloride 106 mmol/L 101-111 88 Co2 (Carbon Dioxide) 25.0 mmol/L 22-32 88 Globulin 2.7 GM/DL 2-4 88 Glucose 91 mg/dL 70-105 88 Potassium 4.2 mmol/L 3.5-5.0 88 Sodium 140 mmol/L 135-145 88 Bilirubin Total 1.1 mg/dL 0.4-1.5 88 Total Protein 7.0 GM/DL 6.2-8.1 88 BUN/Creatinine Ratio 15.4 8-20 88 Creatinine 1.3 mg/dL 0.5-1.4 88 Laboratory test finding 11/05/2005 TSH 0.76 MIU/ML 0.34-5.60 88 Ua Inhouse 05/08/2004 Ua Glucose NEG Ua Bilirubin NEG Ua Ketones NEG Ua Specific Aiken 1.010 Ua Blood NEG Ua PH 5.0 Ua Protein NEG Ua Urobilinogen NEG Ua Nitrite NEG Ua Leukocytes NEG Laboratory test finding 05/08/2004 Urine Microscopic Inhouse NEG Comp Metabolic Panel 03/02/2004 Anion Gap 10.0 mmol/L 2-11 93 Albumin/Globulin Ratio 1.7 1-3 Albumin 4.7 GM/DL 3.2-5.2 Alkaline Phosphatase 60 U/L 39-117 Alt (SGPT) 30 U/L 17-63 Ast (Sgot) 32 U/L 12-42 BUN 14 mg/dL 6-24 Calcium 10.1 mg/dL 8.7-10.2 Chloride 104 mmol/L 101-111 Co2 (Carbon Dioxide) 27.0 mmol/L 22-32 Creatinine 1.3 mg/dL 0.5-1.4 Globulin 2.8 GM/DL 2-4 Glucose 89 mg/dL 70-105 Potassium 4.6 mmol/L 3.5-5.0 Sodium 141 mmol/L 135-145 Bilirubin Total 1.3 mg/dL 0.4-1.5 Total Protein 7.5 GM/DL 6.2-8.1 BUN/Creatinine Ratio 10.8 8-20 Lipid Profile (Trig/Chol/HDL) 03/02/2004 Cholesterol 166 mg/dL Less Than 200 94 Triglyceride 78 mg/dL 40-200 High Density Lipoprotein 49 mg/dL 40-60 Low Density Lipoprotein 101 mg/dL High Less Than 100 95 Cholesterol/HDL Ratio 3.39 AVERAGE 1-4.97 Laboratory test finding 03/02/2004 TSH 0.87 MIU/ML 0.34-5.60 PSA Screening 1.7 NG/ML 0-4 96 CBC With Electronic Diff 03/02/2004 White Blood Count 8.7 CUMM 4.8-10.8 Abs Basophils 0 0-0.2 Abs Eosinophils 0 0-0.6 Abs Grans 5.0 1.5-7.7 Abs Lymphs 2.9 1.0-4.8 Abs Mononuclear 0.8 0-0.8 Basophil % 0.4 % 0-2 Hematocrit 46 % 42-52 Hemoglobin 15.8 g/dL 14.0-18.0 Eosinophil % 0.3 % 0-6 Gran % 57.1 % 38-83 Lymph % 33.3 % 20-45 Mean Corpuscular HGB Cone 34 g/dL 32-36 Mean Corpuscular Hemoglob 33 pg High 27-31 Mean Corpuscular Volume 96 um3 High 80-94 Mean Platelet Volume 8.9 um3 7.4-10.4 Mononuclear % 8.9 % 1-9 Platelet Count 166 CUMM 150-450 Red Cell Count 4.78 CUMM 4.6-6.2 Redcell Distribution WDTH 13 % 10.5-15 Laboratory test finding 09/29/2003 Potassium 4.3 mmol/L 3.5-5.0 Platelet Count 153 CUMM 150-450 CBC With Manual Diff 09/27/2003 White Blood Count 3.8 CUMM Low 4.8-10.8 97 Hematocrit 43 % 42-52 97 Hemoglobin 15.0 g/dL 14.0-18.0 97 Mean Corpuscular HGB Cone 35 g/dL 32-36 97 Mean Corpuscular Hemoglob 33 pg High 27-31 97 Mean Corpuscular Volume 96 um3 High 80-94 97 Mean Platelet Volume 8.5 um3 7.4-10.4 97 Platelet Count 124 CUMM Low 150-450 97 Polysegmented Neutrophil 45 % 38-83 97 Red Cell Count 4.50 CUMM Low 4.6-6.2 97 Redcell Distribution WDTH 13 % 10.5-15 97 Anisocytosis 1+ 97 Eosenophil 4 % 0-6 97 Lymphocyte 35 % 5-47 97 Monocyte 16 % High 0-13 97 Basic Metabolic Panel 09/27/2003 Anion Gap 7.0 mmol/L 2-11 97, 98 BUN 14 mg/dL 6-24 97 Calcium 9.8 mg/dL 8.7-10.2 97 Chloride 102 mmol/L 101-111 97 Co2 (Carbon Dioxide) 31.0 mmol/L 22-32 97 Creatinine 1.3 mg/dL 0.5-1.4 97 Glucose 113 mg/dL High 70-105 97 Potassium 6.0 mmol/L High 3.5-5.0 97 Sodium 140 mmol/L 135-145 97 BUN/Creatinine Ratio 10.8 8-20 97 Protime 09/27/2003 Inr 1.05 97, 99 Protime 12.3 SEC 10.8-13.2 97 CBC With Electronic Diff 09/24/2003 White Blood Count 7.0 CUMM 4.8-10.8 Abs Basophils 0 0-0.2 Abs Eosinophils 0 0-0.6 Abs Grans 5.3 1.5-7.7 Abs Lymphs 1.0 1.0-4.8 Abs Mononuclear 0.7 0-0.8 Basophil % 0.6 % 0-2 Hematocrit 43 % 42-52 Hemoglobin 15.1 g/dL 14.0-18.0 Eosinophil % 0.3 % 0-6 Gran % 75.2 % 38-83 Lymph % 13.9 % Low 20-45 Mean Corpuscular HGB Cone 35 g/dL 32-36 Mean Corpuscular Hemoglob 34 pg High 27-31 Mean Corpuscular Volume 96 um3 High 80-94 Mean Platelet Volume 8.5 um3 7.4-10.4 Mononuclear % 10.0 % High 1-9 Platelet Count 125 CUMM Low 150-450 Red Cell Count 4.48 CUMM Low 4.6-6.2 Redcell Distribution WDTH 13 % 10.5-15 Comp Metabolic Panel 09/24/2003 Anion Gap 6.0 mmol/L 2-11 100 Albumin/Globulin Ratio 1.8 1-3 Albumin 4.3 GM/DL 3.2-5.2 Alkaline Phosphatase 64 U/L 39-117 Alt (SGPT) 37 U/L 17-63 Ast (Sgot) 36 U/L 12-42 BUN 16 mg/dL 6-24 Calcium 9.4 mg/dL 8.7-10.2 Chloride 104 mmol/L 101-111 Co2 (Carbon Dioxide) 29.0 mmol/L 22-32 Creatinine 1.5 mg/dL High 0.5-1.4 Globulin 2.4 GM/DL 2-4 Glucose 122 mg/dL High 70-105 Potassium 4.9 mmol/L 3.5-5.0 Sodium 139 mmol/L 135-145 Bilirubin Total 1.1 mg/dL 0.4-1.5 Total Protein 6.7 GM/DL 6.2-8.1 BUN/Creatinine Ratio 10.7 8-20 Protime 09/24/2003 Inr 1.19 101 Protime 13.1 SEC 10.8-13.2 Lipid Profile 12/29/2002 Cholesterol/HDL Ratio 3.63 AVERAGE 1-4.97 (Trig/Chol/HDL) Cholesterol 174 mg/dL Less Than 200 102 Triglyceride 82 mg/dL 40-200 High Density Lipoprotein 48 mg/dL 40-60 Low Density Lipoprotein 110 mg/dL High Less Than 100 103 CBC With Electronic Diff 12/29/2002 Platelet Count 163 CUMM 150-450 White Blood Count 6.0 CUMM 4.8-10.8 Abs Basophils 0 0-0.2 Abs Eosinophils 0.1 0-0.6 Abs Grans 2.9 1.5-7.7 Abs Lymphs 2.3 1.0-4.8 Abs Mononuclear 0.7 0-0.8 Basophil % 0.5 % 0-2 Hematocrit 45 % 42-52 Hemoglobin 14.7 g/dL 14.0-18.0 Eosinophil % 2.4 % 0-6 Gran % 47.1 % 38-83 Lymph % 37.9 % 20-45 Mean Corpuscular HGB Cone 33 g/dL 32-36 Mean Corpuscular Hemoglob 32 pg High 27-31 Mean Corpuscular Volume 97 um3 High 80-94 Mean Platelet Volume 8.1 um3 7.4-10.4 Mononuclear % 12.1 % High 1-9 Red Cell Count 4.59 CUMM Low 4.6-6.2 Redcell Distribution WDTH 12 % 10.5-15 1 Because ethnic data is not always readily available, this report includes an eGFR for both -Americans and non- Americans. The National Kidney Disease Education Program (NKDEP) does not endorse the use of the MDRD equation for patients that are not between the ages of 18 and 70, are , have extremes of body size, muscle mass, or nutritional status, or are non- or non-. According to the National Kid[employer], irrespective of diagnosis, the stage of the disease is based on the level of kidney function: Stage Description GFR(mL/min/1.73 m(2)) 1 Kidney damage with normal or decreased GFR 90 2 Kidney damage with mild decrease in GFR 60-89 3 Moderate decrease in GFR 30-59 4 Severe decrease in GFR 15-29 5 Kidney failure <15 (or dialysis) 2 Desirable <150 Borderline high 150-199 High 200-499 Very High >500 3 Desirable <200 Borderline high 200-239 High >239 4 Low <40 Desirable: 40-60 High: >60 5 Desirable: <100 mg/dL Near Optimal: 100-129 mg/dL Borderline High: 130-159 mg/dL High: 160-189 mg/dL Very High: >189 mg/dL 6 void, clear, gold 7 Because ethnic data is not always readily available, this report includes an eGFR for both -Americans and non- Americans. The National Kidney Disease Education Program (NKDEP) does not endorse the use of the MDRD equation for patients that are not between the ages of 18 and 70, are , have extremes of body size, muscle mass, or nutritional status, or are non- or non-. According to the National Kid[employer], irrespective of diagnosis, the stage of the disease is based on the level of kidney function: Stage Description GFR(mL/min/1.73 m(2)) 1 Kidney damage with normal or decreased GFR 90 2 Kidney damage with mild decrease in GFR 60-89 3 Moderate decrease in GFR 30-59 4 Severe decrease in GFR 15-29 5 Kidney failure <15 (or dialysis) 8 Desirable <150 Borderline high 150-199 High 200-499 Very High >500 9 Desirable <200 Borderline high 200-239 High >239 10 Low <40 Desirable: 40-60 High: >60 11 Desirable: <100 mg/dL Near Optimal: 100-129 mg/dL Borderline High: 130-159 mg/dL High: 160-189 mg/dL Very High: >189 mg/dL 12 void, clear, christopher 13 Because ethnic data is not always readily available, this report includes an eGFR for both -Americans and non- Americans. The National Kidney Disease Education Program (NKDEP) does not endorse the use of the MDRD equation for patients that are not between the ages of 18 and 70, are , have extremes of body size, muscle mass, or nutritional status, or are non- or non-. According to the National Kidney Foundation, irrespective of diagnosis, the stage of the disease is based on the level of kidney function: Stage Description GFR(mL/min/1.73 m(2)) 1 Kidney damage with normal or decreased GFR 90 2 Kidney damage with mild decrease in GFR 60-89 3 Moderate decrease in GFR 30-59 4 Severe decrease in GFR 15-29 5 Kidney failure <15 (or dialysis) 14 Desirable <150 Borderline high 150-199 High 200-499 Very High >500 15 Desirable <200 Borderline high 200-239 High >239 16 Low <40 Desirable: 40-60 High: >60 17 Desirable: <100 mg/dL Near Optimal: 100-129 mg/dL Borderline High: 130-159 mg/dL High: 160-189 mg/dL Very High: >189 mg/dL 18 Desirable <150 Borderline high 150-199 High 200-499 Very High >500 19 Desirable <200 Borderline high 200-239 High >239 20 Low <40 Desirable: 40-60 High: >60 21 Desirable <100 Near Optimal 100-129 Borderline high 130-159 High 160-189 Very High >189 22 FASTING 23 Because ethnic data is not always readily available, this report includes an eGFR for both -Americans and non- Americans. The National Kidney Disease Education Program (NKDEP) does not endorse the use of the MDRD equation for patients that are not between the ages of 18 and 70, are , have extremes of body size, muscle mass, or nutritional status, or are non- or non-. According to the [employer], irrespective of diagnosis, the stage of the disease is based on the level of kidney function: Stage Description GFR(mL/min/1.73 m(2)) 1 Kidney damage with normal or decreased GFR 90 2 Kidney damage with mild decrease in GFR 60-89 3 Moderate decrease in GFR 30-59 4 Severe decrease in GFR 15-29 5 Kidney failure <15 (or dialysis) 24 Because ethnic data is not always readily available, this report includes an eGFR for both -Americans and non- Americans. The National Kidney Disease Education Program (NKDEP) does not endorse the use of the MDRD equation for patients that are not between the ages of 18 and 70, are , have extremes of body size, muscle mass, or nutritional status, or are non- or non-. According to the [employer], irrespective of diagnosis, the stage of the disease is based on the level of kidney function: Stage Description GFR(mL/min/1.73 m(2)) 1 Kidney damage with normal or decreased GFR 90 2 Kidney damage with mild decrease in GFR 60-89 3 Moderate decrease in GFR 30-59 4 Severe decrease in GFR 15-29 5 Kidney failure <15 (or dialysis) 25 FASTING 26 HDL Interpretation: Undesirable: High Risk: Less than 40 MG/DL Desirable: Low Risk: Greater than 60 MG/DL 27 LDL Interpretation: Low Risk Optimal Level: LDL Less than 100 MG/DL Near or Above Optimal: LDL 100-129 MG/DL Borderline High Risk: LDL 130-159 MG/DL High Risk: LDL 160-189 MG/DL Very High Risk: LDL Greater than 189 MG/DL 28 CHOLESTEROL INTERPRETATION: Desirable: Less than 200 MG/DL Borderline-High Risk: 200-239 MG/DL High-Risk: 240 MG/DL and over 29 HDL INTERPRETATION: Undesirable: High Risk: Less than 40 MG/DL Desirable: Low Risk: Greater than 60 MG/DL 30 LDL INTERPRETATION: Low Risk Optimal Level: LDL Less than 100 MG/DL Near or Above Optimal: LDL 100-129 MG/DL Borderline High Risk: LDL 130-159 MG/DL High Risk: LDL 160-189 MG/DL Very High Risk: LDL Greater than 189 MG/DL 31 Anion gap measurement may be of limited value in the presence of any alkalosis, especially in a combined acid base disorder. . 32 Because ethnic data is not always readily available, this report includes an eGFR for both -Americans and non- Americans. The National Kidney Disease Education Program (NKDEP) does not endorse the use of the MDRD equation for patients that are not between the ages of 18 and 70, are , have extremes of body size, muscle mass, or nutritional status, or are non- or non-. According to the National Kidney Foundation, irrespective of diagnosis, the stage of the disease is based on the level of kidney function: Stage Description GFR(mL/min/1.73 m(2)) 1 Kidney damage with normal or decreased GFR 90 2 Kidney damage with mild decrease in GFR 60-89 3 Moderate decrease in GFR 30-59 4 Severe decrease in GFR 15-29 5 Kidney failure <15 (or dialysis) 33 ---- RUN DATE: 03/12/11 [facility] NMI LIVE PAGE 1 RUN TIME: 1402 Specimen Inquiry RUN USER: INTERFACE -- Name: WESLEY CERVANTESDIANA Weiner JR Status: REG REF Re03/08/11 Age/Sex: 85/M Unit#: [id number] Location: [facility] : 11/28/27 -- Specimen: [id number] SOUT Spec Date: 03/08/[address]: Merlin mcleod MD Spec Type: SURGICAL P Received: 03/09/11 Copies to: Elizabeth bae MD SPECIMEN 1) BIOPSY CECAL POLYP 2) BIOPSY RIGHT COLON POLYP HISTORY POST-OP DIAGNOSIS: Colonoscopy into cecum, prep good; 3 small polyps, mil d sigmoid diverticulosis CLINICAL INFORMATION: Screening colonoscopy; history of colon polyps GROSS DESCRIPTION 1) The specimen is received in formalin labelled Lloyd Cervantes Jr., Biopsy Cecal Polyp, and consists of one fragment of yellow tissue measuring 0.5 x 0.2 x 0.3 cm. Submitted entirely, one cassette labelled 1. 2) The specimen is received in formalin labelled Lloyd Cervantes Jr., Biopsy Right Colon Polyp, and consists of two fragments of rebollar-brown tissue measuring in aggregate 0.6 x 0.5 x 0.3 cm. Submitted entirely, one cassette labelled 2. DIAGNOSIS 1) Colon, cecum, biopsy: A. Tubular adenoma. B. No high grade dysplasia or malignancy. 2) Colon, right, biopsy: A. Tubular adenoma. B. No high grade dysplasia or malignancy. Signed Electronically by: WALTER HOLT MD 03/12/11 1401 -- -- DEPARTMENT OF PATHOLOGY, [address] [place] [address] [facility] Permit #[id number] Walter Holt M.D. Director Maddison Eid M.D. Butcher Scullion Dir tiffani -- 34 CHOLESTEROL INTERPRETATION: Desirable: Less than 200 MG/DL Borderline-High Risk: 200-239 MG/DL High-Risk: 240 MG/DL and over 35 HDL INTERPRETATION: Undesirable: High Risk: Less than 40 MG/DL Desirable: Low Risk: Greater than 60 MG/DL 36 LDL INTERPRETATION: Low Risk Optimal Level: LDL Less than 100 MG/DL Near or Above Optimal: LDL 100-129 MG/DL Borderline High Risk: LDL 130-159 MG/DL High Risk: LDL 160-189 MG/DL Very High Risk: LDL Greater than 189 MG/DL 37 Anion gap measurement may be of limited value in the presence of any alkalosis, especially in a combined acid base disorder. . 38 Because ethnic data is not always readily available, this report includes an eGFR for both -Americans and non- Americans. The National Kidney Disease Education Program (NKDEP) does not endorse the use of the MDRD equation for patients that are not between the ages of 18 and 70, are , have extremes of body size, muscle mass, or nutritional status, or are non- or non-. According to the National Kidney Foundation, irrespective of diagnosis, the stage of the disease is based on the level of kidney function: Stage Description GFR(mL/min/1.73 m(2)) 1 Kidney damage with normal or decreased GFR 90 2 Kidney damage with mild decrease in GFR 60-89 3 Moderate decrease in GFR 30-59 4 Severe decrease in GFR 15-29 5 Kidney failure <15 (or dialysis) 39 Anion gap measurement may be of limited value in the presence of any alkalosis, especially in a combined acid base disorder. . 40 Because ethnic data is not always readily available, this report includes an eGFR for both -Americans and non- Americans. The National Kidney Disease Education Program (NKDEP) does not endorse the use of the MDRD equation for patients that are not between the ages of 18 and 70, are , have extremes of body size, muscle mass, or nutritional status, or are non- or non-. According to the National Kidney Foundation, irrespective of diagnosis, the stage of the disease is based on the level of kidney function: Stage Description GFR(mL/min/1.73 m(2)) 1 Kidney damage with normal or decreased GFR 90 2 Kidney damage with mild decrease in GFR 60-89 3 Moderate decrease in GFR 30-59 4 Severe decrease in GFR 15-29 5 Kidney failure <15 (or dialysis) 41 CHOLESTEROL INTERPRETATION: Desirable: Less than 200 MG/DL Borderline-High Risk: 200-239 MG/DL High-Risk: 240 MG/DL and over 42 HDL INTERPRETATION: Undesirable: High Risk: Less than 40 MG/DL Desirable: Low Risk: Greater than 60 MG/DL 43 LDL INTERPRETATION: Low Risk Optimal Level: LDL Less than 100 MG/DL Near or Above Optimal: LDL 100-129 MG/DL Borderline High Risk: LDL 130-159 MG/DL High Risk: LDL 160-189 MG/DL Very High Risk: LDL Greater than 189 MG/DL 44 Anion gap measurement may be of limited value in the presence of any alkalosis, especially in a combined acid base disorder. . 45 Because ethnic data is not always readily available, this report includes an eGFR for both -Americans and non- Americans. The National Kidney Disease Education Program (NKDEP) does not endorse the use of the MDRD equation for patients that are not between the ages of 18 and 70, are , have extremes of body size, muscle mass, or nutritional status, or are non- or non-. According to the National Kidney Foundation, irrespective of diagnosis, the stage of the disease is based on the level of kidney function: Stage Description GFR(mL/min/1.73 m(2)) 1 Kidney damage with normal or decreased GFR 90 2 Kidney damage with mild decrease in GFR 60-89 3 Moderate decrease in GFR 30-59 4 Severe decrease in GFR 15-29 5 Kidney failure <15 (or dialysis) 46 Anion gap measurement may be of limited value in the presence of any alkalosis, especially in a combined acid base disorder. . 47 Note change in reference range as of 10/02/07. The change was based on recommendations from the [place] [employer]. 48 Please note change in reference range effective 07 . 49 Because ethnic data is not always readily available, this report includes an eGFR for both -Americans and non- Americans. The National Kidney Disease Education Program (NKDEP) does not endorse the use of the MDRD equation for patients that are not between the ages of 18 and 70, are , have extremes of body size, muscle mass, or nutritional status, or are non- or non-. According to the National Kidney Foundation, irrespective of diagnosis, the stage of the disease is based on the level of kidney function: Stage Description GFR(mL/min/1.73 m(2)) 1 Kidney damage with normal or decreased GFR 90 2 Kidney damage with mild decrease in GFR 60-89 3 Moderate decrease in GFR 30-59 4 Severe decrease in GFR 15-29 5 Kidney failure <15 (or dialysis) 50 CHOLESTEROL INTERPRETATION: Desirable: Less than 200 MG/DL Borderline-High Risk: 200-239 MG/DL High-Risk: 240 MG/DL and over 51 HDL INTERPRETATION: Undesirable: High Risk: Less than 40 MG/DL Desirable: Low Risk: Greater than 60 MG/DL 52 LDL INTERPRETATION: Low Risk Optimal Level: LDL Less than 100 MG/DL Near or Above Optimal: LDL 100-129 MG/DL Borderline High Risk: LDL 130-159 MG/DL High Risk: LDL 160-189 MG/DL Very High Risk: LDL Greater than 189 MG/DL 53 Test Performed by: [facility] Pathology [address] [place] [address] Ad Operations Specialist: Derrell Mckee III, M.D. 54 occ rbc, 1-2 epi, occ wbc 55 Anion gap measurement may be of limited value in the presence of any alkalosis, especially in a combined acid base disorder. . 56 Note change in reference range as of 10/02/07. The change was based on recommendations from the [place] [employer]. 57 Please note change in reference range effective 07 . 58 Because ethnic data is not always readily available, this report includes an eGFR for both -Americans and non- Americans. The National Kidney Disease Education Program (NKDEP) does not endorse the use of the MDRD equation for patients that are not between the ages of 18 and 70, are , have extremes of body size, muscle mass, or nutritional status, or are non- or non-. According to the National Kidney Foundation, irrespective of diagnosis, the stage of the disease is based on the level of kidney function: Stage Description GFR(mL/min/1.73 m(2)) 1 Kidney damage with normal or decreased GFR 90 2 Kidney damage with mild decrease in GFR 60-89 3 Moderate decrease in GFR 30-59 4 Severe decrease in GFR 15-29 5 Kidney failure <15 (or dialysis) 59 CHOLESTEROL INTERPRETATION: Desirable: Less than 200 MG/DL Borderline-High Risk: 200-239 MG/DL High-Risk: 240 MG/DL and over 60 HDL INTERPRETATION: Undesirable: High Risk: Less than 40 MG/DL Desirable: Low Risk: Greater than 60 MG/DL 61 LDL INTERPRETATION: Low Risk Optimal Level: LDL Less than 100 MG/DL Near or Above Optimal: LDL 100-129 MG/DL Borderline High Risk: LDL 130-159 MG/DL High Risk: LDL 160-189 MG/DL Very High Risk: LDL Greater than 189 MG/DL 62 Anion gap measurement may be of limited value in the presence of any alkalosis, especially in a combined acid base disorder. . 63 Note change in reference range as of 10/02/07. The change was based on recommendations from the [place] [employer]. 64 Please note change in reference range effective 07 . 65 CHOLESTEROL INTERPRETATION: Desirable: Less than 200 MG/DL Borderline-High Risk: 200-239 MG/DL High-Risk: 240 MG/DL and over 66 HDL INTERPRETATION: Undesirable: High Risk: Less than 40 MG/DL Desirable: Low Risk: Greater than 60 MG/DL 67 LDL INTERPRETATION: Low Risk Optimal Level: LDL Less than 100 MG/DL Near or Above Optimal: LDL 100-129 MG/DL Borderline High Risk: LDL 130-159 MG/DL High Risk: LDL 160-189 MG/DL Very High Risk: LDL Greater than 189 MG/DL 68 Anion gap measurement may be of limited value in the presence of any alkalosis, especially in a combined acid base disorder. . 69 Note change in reference range as of 10/02/07. The change was based on recommendations from the [place] [employer]. 70 Please note change in reference range effective 07 . 71 CHOLESTEROL INTERPRETATION: Desirable: Less than 200 MG/DL Borderline-High Risk: 200-239 MG/DL High-Risk: 240 MG/DL and over 72 HDL INTERPRETATION: Undesirable: High Risk: Less than 40 MG/DL Desirable: Low Risk: Greater than 60 MG/DL 73 LDL INTERPRETATION: Low Risk Optimal Level: LDL Less than 100 MG/DL Near or Above Optimal: LDL 100-129 MG/DL Borderline High Risk: LDL 130-159 MG/DL High Risk: LDL 160-189 MG/DL Very High Risk: LDL Greater than 189 MG/DL 74 Anion gap measurement may be of limited value in the presence of any alkalosis, especially in a combined acid base disorder. . 75 Note change in reference range as of 10/02/07. The change was based on recommendations from the [place] [employer]. 76 Please note change in reference range effective 07 . 77 TAY VALUE=2.01 ( OF 01/17/07 Recommended INR for Patients on Oral Anticoagulants Prophylaxis 2.0 - 3.0 Treatment of thrombosis 2.0 - 3.0 Prevention of embolism 2.0 - 3.0 Prevention of embolism from prosthetic heart valves 2.5 - 3.5 78 PLEASE NOTE NEW REFERENCE RANGE EFFECTIVE 07. 79 Anion gap measurement may be of limited value in the presence of any alkalosis, especially in a combined acid base disorder. . 80 Please note change in reference range effective 07 . 81 Classification: Desirable . 82 Classification: Low . 83 CALCULATED LDL APPROXIMATES THE VALUE OF A DIRECT LDL MEASUREMENT. Classification: Near or above optimal . 84 Anion gap measurement may be of limited value in the presence of any alkalosis, especially in a combined acid base disorder. . 85 * SERUM LEVELS OF PSA MEASURED USING THE SPARKLE JUAN ACCESS HYBRITECH IMMUNOASSAY SHOULD NOT BE INTERPRETED ABSOLUTE EVIDENCE OF THE PRESENCE OR ABSENCE OF DISEASE. THE PSA VALUE SHOULD BE USED IN CONJUNCTION WITH OTHER PERTINENT CLINICAL DIAGNOSTIC PROCEDURES. 86 Anion gap measurement may be of limited value in the presence of any alkalosis, especially in a combined acid base disorder. . 87 ---- RUN DATE: 01/21/06 [facility] NMI LIVE PAGE 1 RUN TIME: 1401 Specimen Inquiry RUN USER: INTERFACE [id number] LLOYD CERVANTES JR 80/M <REG REF 01/17> ([id number]) 2EFLORI Boothe MD.,Ronnie Glez -- Specimen: [id number] SOUT Spec Date: 01/17/[address]: Merlin mcleod MD. Spec Type: SURGICAL P Received: 01/18/06 Copies to: Elizabeth bae MD SPECIMEN COLON BIOPSY - CECUM HISTORY CLINICAL INFORMATION: Patient with gastroesophageal reflux disease (contr olled with ranitidine) for routine screening colonoscopy GROSS DESCRIPTION The specimen is received in formalin labelled "Lloyd Cervantes Jr., Colon Bx Cecum" and consists of three, 0.2 cm. to 0.3 cm. rebollar bits. Total, one block. DIAGNOSIS Cecal polyp, biopsy - A) Tubular adenoma. B) No high grade dysplasia or malignancy. Signed Electronically signed ELIZABETH NICOLE MD 01/21/06 -- -- DEPARTMENT OF PATHOLOGY, [address] [place] [address] [facility] Permit #[id number] Elizabeth Nicole II, M.D. Director Rojelio Carlson irector -- 88 FASTING 89 Classification: Desirable . 90 CALCULATED LDL APPROXIMATES THE VALUE OF A DIRECT LDL MEASUREMENT. Classification: Optimal Level . 91 * SERUM LEVELS OF PSA MEASURED USING THE SPARKLE JUAN ACCESS HYBRITECH IMMUNOASSAY SHOULD NOT BE INTERPRETED ABSOLUTE EVIDENCE OF THE PRESENCE OR ABSENCE OF DISEASE. THE PSA VALUE SHOULD BE USED IN CONJUNCTION WITH OTHER PERTINENT CLINICAL DIAGNOSTIC PROCEDURES. 92 Anion gap measurement may be of limited value in the presence of any alkalosis, especially in a combined acid base disorder. . 93 Anion gap measurement may be of limited value in the presence of any alkalosis, especially in a combined acid base disorder. . 94 Classification: Desirable . 95 CALCULATED LDL APPROXIMATES THE VALUE OF A DIRECT LDL MEASUREMENT. Classification: Near or above optimal . 96 * SERUM LEVELS OF PSA MEASURED USING THE SPARKLE [employer] ACCESS HYBRITECH IMMUNOASSAY SHOULD NOT BE INTERPRETED ABSOLUTE EVIDENCE OF THE PRESENCE OR ABSENCE OF DISEASE. THE PSA VALUE SHOULD BE USED IN CONJUNCTION WITH OTHER PERTINENT CLINICAL DIAGNOSTIC PROCEDURES. 97 reordered K+ and platelets 98 Anion gap measurement may be of limited value in the presence of any alkalosis, especially in a combined acid base disorder. . 99 TAY VALUE=1.95 ( OF 02/24/03) Recommended INR for Patients on Oral Anticoagulants Prophylaxis 2.0 - 3.0 Treatment of thrombosis 2.0 - 3.0 Prevention of embolism 2.0 - 3.0 Prevention of embolism from prosthetic heart valves 2.5 - 3.5 100 Anion gap measurement may be of limited value in the presence of any alkalosis, especially in a combined acid base disorder. . 101 TAY VALUE=1.95 ( OF 02/24/03) Recommended INR for Patients on Oral Anticoagulants Prophylaxis 2.0 - 3.0 Treatment of thrombosis 2.0 - 3.0 Prevention of embolism 2.0 - 3.0 Prevention of embolism from prosthetic heart valves 2.5 - 3.5 102 Classification: Desirable . 103 CALCULATED LDL APPROXIMATES THE VALUE OF A DIRECT LDL MEASUREMENT. Classification: Near or above optimal . Procedures Date CPT Code Description Status Comment 12/19/2016 06516 Destruction Premalignant Skin Completed Lesions 12/12/2015 99550 Electrocardiogram Complete Completed 05/16/2015 24958 Electrocardiogram Complete Completed 10/28/2014 96225 Electrocardiogram Complete Completed 05/27/2014 92836 Electrocardiogram Complete Completed 07/03/2013 37930 ECG Monitor/Review & Completed Interpretation, W/Visual Superimpos Scan 07/03/2013 83237 ECG Monitor/Recording W/Scanning Completed 07/02/2013 94597 Electrocardiogram Complete Completed 07/02/2013 33998 Destruction Premalignant Skin Completed Lesions, 2-14,Ea 07/02/2013 49866 Destruction Premalignant Skin Completed Lesions 08/21/2012 80270 Electrocardiogram Complete Completed 05/15/2012 90222 Electrocardiogram Complete Completed 01/15/2012 80552 Electrocardiogram Complete Completed 08/09/2011 97731 Electrocardiogram Complete Completed 02/11/2011 Colonoscopy Completed 2011: adenomata repeat 2016?? Document: 03/08/11 - Colon W/BX DR Boothe 01/11/2011 71486 Electrocardiogram Complete Completed 06/01/2010 29021 Electrocardiogram Complete Completed 12/30/2009 42500 Electrocardiogram Complete Completed 08/18/2009 61570 Electrocardiogram Complete Completed 05/26/2009 51747 Electrocardiogram Complete Completed 05/26/2009 69131 X-Ray Hand Three Or More Views Completed 02/02/2009 89719 Electrocardiogram Complete Completed 12/16/2008 91594 X-Ray Pelvis, Ap Only Completed 12/16/2008 36260 X-Ray, Lumbar Spine Complete, Completed Obl 12/07/2008 59364 Electrocardiogram Complete Completed 09/10/2008 59714 Electrocardiogram Complete Completed 06/17/2008 34454 Electrocardiogram Complete Completed 06/17/2008 64574 X-Ray Chest Two Views Completed 01/29/2008 82491 Electrocardiogram Complete Completed 07/15/2007 25172 Electrocardiogram Complete Completed 07/15/2007 01902 X-Ray Chest Two Views Completed 04/17/2007 16839 Destruction Premalignant Skin Completed Lesions 04/17/2007 90504 Electrocardiogram Complete Completed 10/24/2006 82655 Electrocardiogram Complete Completed 07/18/2006 90568 Electrocardiogram Complete Completed 04/11/2006 59421 Electrocardiogram Complete Completed 01/10/2006 18741 Electrocardiogram Complete Completed 12/17/2005 56956 Electrocardiogram Complete Completed 03/06/2004 94197 ECG Monitor/Recording W/Scanning Completed 03/06/2004 55435 ECG Monitor/Recording W/Scanning Completed 03/06/2004 92281 ECG Monitor/Review & Completed Interpretation, W/Visual Superimpos Scan 03/06/2004 86085 ECG Monitor/Review & Completed Interpretation, W/Visual Superimpos Scan 03/02/2004 81865 Electrocardiogram Complete Completed 12/29/2002 35097 Electrocardiogram Complete Completed Encounters Type Date Location Provider CPT E/M Dx Office Visit 07/15/2017 2:30p Main Office Varghese Rowell M.D. 13636 M25.462 M71.22 Office Visit 06/18/2017 11:00a Main Office Magnus Rivera D.O. 26405 I10 K21.9 N40.1 I25.10 Office Visit 06/14/2016 2:00p Main Office Elizabeth Page M.D. 43328 I10 K21.9 N40.1 Z23 Office Visit 04/05/2016 3:55p [place] [address] M79.672 Office Visit 12/12/2015 2:30p Main Office Elizabeth Page M.D. 49424 I10 K21.9 N40.1 I25.10 E78.00 Z00.01 Z71.89 Z23 Z41.8 R22.42 Office Visit 05/16/2015 9:05a Main Office Elizabeth Page M.D. 93691 I10 K21.9 N40.1 I25.10 Z71.89 H04.123 E78.0 Office Visit 10/28/2014 11:15a Main Office Elizabeth Page M.D. 31856 I10 K21.9 N40.1 I25.10 Z71.89 Office Visit 06/30/2014 1:15p Main Office Varghese Rowell M.D. 58506 911.4 E906.4 Office Visit 05/27/2014 11:15a Main Office Elizabeth Page M.D. 68747 401.1 692.89 389.10 414.00 V65.49 v07.2 v03.82 Office Visit 11/26/2013 10:45a Main Office Elizabeth Page M.D. 68400 414.00 530.81 401.1 600.01 V70.0 Office Visit 07/02/2013 10:15a Main Office Elizabeth Page M.D. 07277 785.1 530.81 401.1 414.01 702.0 Office Visit 2012 10:45a Main Office Elizabeth Page M.D. 16297 401.1 530.81 414.01 785.1 E906.4 V65.49 v07.2 v04.81 Office Visit 08/21/2012 12:55p Main Office Elizabeth Page M.D. 92720 401.1 414.01 530.81 785.1 E906.4 Office Visit 05/15/2012 2:00p Main Office Elizabeth Page M.D. 38887 401.1 414.01 530.81 785.1 782.3 Office Visit 01/15/2012 3:15p Main Office Elizabeth Page M.D. 04508 V04.81 401.1 414.01 530.81 785.1 V76.44 V65.49 V70.0 V04.81 V07.2 Office Visit 08/09/2011 10:15a Main Office Elizabeth Page M.D. 98322 401.1 414.01 600.01 530.81 785.1 Office Visit 05/15/2011 12:55p Main Office Elizabeth Page M.D. 20206 782.3 401.1 600.01 530.81 414.01 Office Visit 01/11/2011 10:45a Main Office Elizabeth Page M.D. 99001 401.1 600.01 530.81 414.01 785.1 278.02 V76.51 V76.44 V70.0 Office Visit 10/05/2010 8:55a Main Office Elizabeth Page M.D. 67416 401.1 530.81 414.01 788.43 Office Visit 06/01/2010 9:15a Main Office Elizabeth Page M.D. 40131 401.1 414.01 530.81 600.01 Office Visit 12/30/2009 9:15a Main Office Elizabeth Page M.D. 59883 401.1 414.01 530.81 785.1 278.02 V76.51 V76.44 V70.0 V04.81 Office Visit 08/18/2009 9:05a Main Office Elizabeth Page M.D. 23965 401.1 414.01 530.81 785.1 727.03 Office Visit 05/26/2009 8:55a Main Office Elizabeth Page M.D. 76684 727.03 530.81 401.1 414.01 785.1 278.02 Office Visit 02/02/2009 2:30p Main Office Elizabeth Page M.D. 10751 401.1 530.81 414.01 785.1 337.00 V70.0 782.0 V04.81 Office Visit 12/07/2008 1:55p Main Office Elizabeth Page M.D. 52043 724.2 413.9 Office Visit 09/10/2008 1:10p Main Office Elizabeth Page M.D. 80043 401.1 530.81 414.01 785.1 272.0 Office Visit 06/17/2008 10:00a Main Office Elizabeth Page M.D. 95262 786.2 401.1 530.81 333.94 414.01 Office Visit 01/29/2008 10:45a Main Office Elizabeth Page M.D. 60288 333.94 401.1 530.81 785.1 414.01 278.02 302.72 V76.44 V76.51 V70.0 Office Visit 09/15/2007 3:00p Main Office Elizabeth Page M.D. 19823 110.3 Office Visit 07/15/2007 4:00p Main Office Elizabeth Page M.D. 52826 786.09 401.1 785.1 530.81 702.0 278.02 Office Visit 04/17/2007 2:45p Main Office Elizabeth Page M.D. 85682 702.0 401.1 785.1 530.81 782.0 Office Visit 01/23/2007 2:45p Main Office Elizabeth Page M.D. 48448 401.1 785.1 530.81 302.72 V76.44 V76.51 V70.0 Office Visit 10/24/2006 10:00a Main Office Elizabeth Page M.D. 12102 401.1 785.1 530.81 302.72 Office Visit 07/18/2006 8:55a Main Office Elizabeth Page M.D. 57840 401.1 785.1 530.81 278.02 Office Visit 06/18/2006 9:15a [place] [address] 373.00 372.00 Office Visit 04/11/2006 2:15p Main Office Elizabeth Page M.D. 96552 401.1 785.1 530.81 278.02 Office Visit 01/10/2006 3:00p Main Office Elizabeth Page M.D. 13654 401.1 785.1 530.81 Office Visit 12/17/2005 9:15a Main Office Elizabeth Page M.D. 14675 796.2 785.1 V04.81 Office Visit 11/26/2005 11:15a Main Office Elizabeth Page M.D. 40839 461.0 Office Visit 11/05/2005 9:15a Main Office Elizabeth Page M.D. 34164 530.81 796.2 V70.0 V76.51 053.9 V06.5 V07.2 Office Visit 10/04/2005 1:45p Main Office Elizabeth Page M.D. 32799 705.81 Office Visit 05/08/2004 12:55p Main Office Elizabeth Page M.D. 79579 796.2 785.1 Office Visit 03/02/2004 11:15a Main Office Bipin Damon M.D. 26479 369.64 389.00 354.0 427.61 427.0 369.8 Office Visit 09/27/2003 11:00a Main Office ksenia 39760 082.0 287.5 584.9 Office Visit 09/24/2003 2:00p Main Office ksenia 14349 082.0 Office Visit 12/29/2002 9:30a Main Office Bipin Damon M.D. 42214 530.81 401.1 V76.51 369.64 Plan of Care Future Appointment(s):01/06/2018 1:30 pm - Nurse's Schedule at Main Alwmyk2901/06 1:30 pm - Magnus Rivera D.O. at Main Jgwovz7107/15/2017 - Varghese Rowell M.D.M25.462 Effusion, left kneeComments:suspect this is sec to overuse after spending more time than usual on his feet. Tx as below.M71.22 Synovial cyst of popliteal space [Gee], left kneeComments:Dx highly likely, DVT very unlikely. Discussed option of u/s but that I did not feel it was necessary and he declined eval, preferring a wait and see approach. Advised re intermittent elevation (when seated), using a compression sleeve. DIscussed if Sxs increasing he could RTO, consider joint aspiration and steroid injection. If he changes his mind about further eval he may call back to request u/s.
--- NOTE | 2017-07-23 07:55 | RAD ---
HISTORY: knee pain/swelling COMPARISONS: None VIEWS: 2, Frontal and lateral views of the left knee FINDINGS: BONE DENSITY: Normal. BONES: There is no displaced fracture. JOINTS: There is moderate tricompartmental osteoarthritis. There is a moderate suprapatellar joint effusion. There is no lipohemarthrosis. ALIGNMENT: There is no dislocation. SOFT TISSUES: There is peripheral arterial calcification. OTHER FINDINGS: None. IMPRESSION: 1. OSTEOARTHRITIS. 2. PERIPHERAL ARTERIAL DISEASE. 3. JOINT EFFUSION. 4. NO ACUTE OSSEOUS INJURY. IF SYMPTOMS PERSIST, RECOMMEND REPEAT IMAGING
--- NOTE | 2017-07-23 08:35 | RAD ---
HISTORY: Edema, pain COMPARISONS: None relevant TECHNIQUE: Multiple transverse and longitudinal ultrasound images were obtained of the left lower extremity from the level of the common femoral vein inferiorly through to the infrapopliteal veins using grayscale, color Doppler, and spectral Doppler imaging with and without compression and with augmentation. Comparison images were obtained of the contralateral common femoral vein. FINDINGS: VEINS: The venous system of the left lower extremity is compressible throughout its course, with normal flow on color Doppler imaging and normal response to augmentation on spectral Doppler imaging. SOFT TISSUES: There is a complex fluid collection within popliteal fossa measuring 7.1 x 2.9 x 4.2 cm in size. OTHER FINDINGS: None. IMPRESSION: 1. NO LEFT LOWER EXTREMITY DEEP VEIN THROMBOSIS. 2. LITTLEJOHN'S CYST
[2017-07-23] MEDS ORDERED: Acetaminop/Codeine 30 MG TAB* 1 TAB (300 MG/30 MG) PO ONE (10:06)
--- NOTE | 2017-07-23 10:14 | ED ---
Lower Extremity - HPI Summary HPI Summary: Patient presents with left knee pain, swelling and stiffness since trying to get up to urinate at 3:00 this morning. He admits he is aware he has a Gee's cyst as he was recently diagnosed in his PCPs office. He is concerned this may have ruptured. Denies numbness, tingling, weakness, coolness of lower extremity however he has pain with weightbearing and difficulty with flexion due to swelling. Denies chest pain, shortness of breath, fever, chills, nausea , abdominal pain, back pain, hip pain. Tried an NSAID yesterday however he is not supposed to take this as he is on Eliquis. Also reports he hasn't tried Tylenol visit doesn't do anything for him. - History of Current Complaint Chief Complaint: EDExtremityLower Stated Complaint: LEFT LEG PAIN Time Seen by Provider: 07/23/17 05:48 Hx Obtained From: Patient, Family/Dormitory Maid - son Pain Intensity: 5 - Allergies/Home Medications Allergies/Adverse Reactions: Allergies Allergy/AdvReac Type Severity Reaction Status Date / Time No Known Allergies Allergy Verified 07/23/17 05:43 Home Medications: Home Medications Apixaban* [Eliquis*] 5 mg PO BID 07/23/17 [History Confirmed 07/23/17] Aspirin 81 mg CHEW TAB* [Aspirin Low Dose TAB*] 81 mg PO DAILY 07/23/17 [ History Confirmed 07/23/17] Multivit-Min/FA/Lycopen/Lutein [Centrum Silver Men Tablet] 1 each PO DAILY 07/23 [History Confirmed 07/23/17] Ranitidine TAB (NF) [Zantac TAB (NF)] 300 mg PO BID 07/23/17 [History Confirmed 07/23/17] Simvastatin TAB(NF) [Zocor(NF)] 20 mg PO 1700 07/23/17 [History Confirmed ] Terazosin CAP* [Hytrin CAP*] 5 mg PO BEDTIME 07/23/17 [History Confirmed ] dilTIAZem HCl [Cartia Xt] 180 mg PO DAILY 07/23/17 [History Confirmed 07/23/17] PMH/Surg Hx/FS Hx/Imm Hx Previously Healthy: Yes Endocrine/Hematology History: Reports: Hx Anticoagulant Therapy - eliquis Cardiovascular History: Reports: Hx Atrial Fibrillation, Hx Coronary Artery Disease - bypass surgery Musculoskeletal History: Reports: Hx Arthritis, Other Musculoskeletal History - Lt knee Gee's cyst Infectious Disease History: No Infectious Disease History: Denies: Traveled Outside the [place] in Last 30 Days - Social History Occupation: Retired Lives: With Family Alcohol Use: None Hx Substance Use: No Substance Use Type: Reports: None Hx Tobacco Use: No Smoking Status (MU): Never Smoked Tobacco Review of Systems Constitutional: Negative Negative: Fever, Chills, Fatigue Negative: Chest Pain Negative: Shortness Of Breath Positive: no symptoms reported Positive: Arthralgia, Decreased ROM, Edema Skin: Negative Neurological: Negative Positive: Anxious All Other Systems Reviewed And Are Negative: Yes Physical Exam Triage Information Reviewed: Yes Vital Signs On Initial Exam: Initial Vitals Temp Pulse Resp BP Pulse Ox 98.5 F 82 16 160/91 96 07/23/17 05:43 07/23/17 05:43 07/23/17 05:43 07/23/17 05:43 07/23/17 05:43 Vital Signs Reviewed: Yes Appearance: Positive: Well-Appearing, Well-Nourished, Pain Distress - mild to moderate 5/10 Skin: Positive: Warm, Skin Color Reflects Adequate Perfusion, Dry - no erythema , no ecchymosis, no streaking Head/Face: Positive: Normal Head/Face Inspection ENT: Positive: Hearing grossly normal Respiratory/Lung Sounds: Positive: Breath Sounds Present Cardiovascular: Positive: Pulses are Symmetrical in both Upper and Lower Extremities, IRR, Leg Edema Left - + Chava's Musculoskeletal: Positive: Strength/ROM Intact - ankles, toes, hips, Limited @ - Lt knee flexion limited d/t pain/edema; no fever, no erythema to touch, Other Neurological: Positive: Sensory/Motor Intact, Alert, Oriented to Person Place, Time, CN Intact II-III, Reflexes Intact Psychiatric: Positive: Anxious Diagnostics - Vital Signs Vital Signs Temp Pulse Resp BP Pulse Ox 07/23/17 07:39 70 135/70 93 07/23/17 07:09 75 137/79 93 07/23/17 07:03 57 89 07/23/17 06:45 134/74 07/23/17 06:39 73 134/74 93 07/23/17 06:32 70 16 144/76 96 06/12/18 05:43 98.5 F 82 16 160/91 96 - Laboratory Result Diagrams: 07/23/17 10:08 07/23/17 10:08 Lab Statement: Any lab studies that have been ordered have been reviewed, and results considered in the medical decision making process. Lower Extremity Course/Dx - Course Course Of Treatment: Pt presents by ambulance w/ difficulty bearing weight on LLE d/t pain/swelling behind knee. Has not tried anything for this prior to arrival and denies N/T/W. Has edema from knee down however has good pulses, skin well perfused, sensation intact and motor intact other than some limitation about the knee d/t edema in popliteal space. XR reveals arthritis and U/S neg for DVT - (+) gee's cyst measuring 7.1cm x 2.9cm x 4.2cm. No hemorrhage reported. No compartment syndrome. Discussed w/ Dr. Mcclendon who will see him in her office this week for drainage and steroid injection as needed. Pt agrees w/ plan. Labs are neg for infection. - Diagnoses Provider Diagnoses: Synovial cyst of popliteal space [Gee], left knee Discharge - Sign-Out/Discharge Documenting (check all that apply): Discharge/Admit/Transfer - Discharge Plan Condition: Stable Disposition: HOME Patient Education Materials: Crutch Instructions (ED), Bakers Cyst (ED) Referrals: Jacob Mcclendon MD [Medical Doctor] - Additional Instructions: Rest, ice, elevate You may use crutches as needed to avoid weight bearing if it is painful to do so Follow-up with Dr. Mcclendon, orthopedics, this week. Call today to schedule an appointment. *If you develop numbness, tingling, weakness or change in color of your leg/ coolness, return to the ED - Billing Disposition and Condition Condition: STABLE Disposition: Home
[2017-07-23 10:18] LABS: ABS Basophils 0.1 10^3/ul (0-0.2); ABS Eosinophils 0 10^3/ul (0-0.6); ABS Lymphocytes 1.8 10^3/ul (1.0-4.8); ABS Monocytes 0.7 10^3/ul (0-0.8); ABS Neutrophils 5.1 10^3/ul (1.5-7.7); ABS Nucleated RBC 0 10^3/ul; Eosinophil % 0.3 % (0-6); Hematocrit 38 % (42-52); Hemoglobin 12.7 g/dl (14.0-18.0); Lymphocyte % 23.8 % (25-47); Mean Corpuscular HGB Conc 34 g/dl (31-36); Mean Corpuscular Hemoglobin 33 pg (27-31); Mean Corpuscular Volume 97 fL (80-94); Mean Platelet Volume 7.4 um3 (7.4-10.4); Nucleated Red Blood Cells % 0; Platelet Count 114 10^3/ul (150-450); Red Cell Distribution Width 13 % (10.5-15); White Blood Count 7.8 10^3/ul (3.5-10.8)
[2017-07-23 10:24] LABS: INR 1.34 (0.77-1.02)
[2017-07-23 10:34] LABS: EGFR Non-African American 55.9 (>60)
[2017-07-23 11:49] VITALS: BP 133/69
== END 2017-07-23 11:40 | disposition home or self-care (01) ==
LOC: ED 05:37
DX: M71.22 Synovial cyst of popliteal space [Baker], left knee (principal); F41.9 Anxiety disorder, unspecified; M25.562 Pain in left knee; I48.91 Unspecified atrial fibrillation; Z79.01 Long term (current) use of anticoagulants; I25.10 Atherosclerotic heart disease of native coronary artery without angina pectoris; Z95.1 Presence of aortocoronary bypass graft
CPT/HCPCS: 36415; 80053; 85025; 85610; 85652; 86140; 99283; A9270-GY